=== PATIENT | female | born 1955 | race Caucasian/White ===

== ENCOUNTER 2021-03-10 15:44 | Inpatient (IN) ==
[2021-03-10 16:46] LABS: Basophils % 0.6 %; Eosinophils # 0.2 K/mcL (0.0-0.6); Eosinophils % 4.3 %; Hematocrit 44.2 % (35.3-44.9); Hemoglobin 13.7 g/dL (11.5-15.4); Immature Granulocytes % 0.4 % (0-4); Lymphocytes # 0.5 K/mcL (0.6-4.6); Lymphocytes % 9.4 %; Mean Corpuscular Hemoglobin 30.4 pg (28.0-33.3); Mean Corpuscular Volume 98.2 fL (83.0-100.0); Monocytes # 0.4 K/mcL (0.0-1.3); Monocytes % 8.6 %; Neutrophils # 3.9 K/mcL (1.6-8.9); Platelet Count 143 K/mcL (140-400); Red Cell Distribution Width 14.5 % (11.5-14.5); Segmented Neutrophils % 76.7 %; White Blood Count 5.1 K/mcL (4.3-11.1)
[2021-03-10 17:36] LABS: Prothrombin Time 11.4 Seconds (9.4-12.1)
[2021-03-10 17:39] LABS: Activated Partial Thrombo Time 34.8 Seconds (26.0-36.0); D-Dimer 299 ng/mLFEU (0-500)
[2021-03-10 17:48] LABS: BUN/Creatinine Ratio 23 (6-26); Blood Urea Nitrogen 10 mg/dL (8-23); Calcium 9.8 mg/dL (8.6-10.3); Carbon Dioxide 35 mEq/L (23-29); Chloride 95 mEq/L (98-107); Glucose 104 mg/dL (70-105); Osmolality,Calculated 277 (280-300); Potassium 4.3 mEq/L (3.5-5.1); Sodium 134 mEq/L (136-145); Troponin I 0.03 ng/mL (< 0.04); eGFR For African Americans > 60 (> 60); eGFR For Non-African Americans > 60 (> 60)
[2021-03-10] MEDS ORDERED: *HR* Heparin 5,000 UNIT/ML VIAL IVP PRN ×2 (17:58)
[2021-03-10] MEDS ORDERED: *HR* Heparin 5,000 UNIT/ML VIAL IVP ONE (17:58)
[2021-03-10] MEDS ORDERED: Heparin 25,000UNIT/250ML 1/2NS 25,000 UNIT/250 ML IV.SOLN IVC SCH (18:00)
[2021-03-10 18:08] LABS: Influenza A PCR Negative (Negative); Influenza B PCR Negative (Negative); Resp. Syncytial Virus PCR Negative (Negative)
[2021-03-10 18:08] LABS: Heparin anti-factor XA UFH < 0.04 IU/mL (0.30-0.70)
[2021-03-10 18:09] LABS: SARS-CoV-2 by PCR (In House) Negative (Negative)
[2021-03-10] MEDS: DilTIAZem 50 MG/50 ML IV.SOLN IVC SCH (18:35)
[2021-03-10] MEDS ORDERED: Melatonin 3 MG TABLET PO PRN (20:12)
[2021-03-10] MEDS ORDERED: Naloxone 0.4 MG/ML INJ IVP PRN (20:12)
[2021-03-10] MEDS ORDERED: Ondansetron 4 MG/2 ML VIAL IVP PRN (20:12)
[2021-03-10] MEDS ORDERED: Acetaminophen 325 MG TABLET PO PRN (20:12)
[2021-03-10] MEDS ORDERED: *HR* HYDROcodone/Acet 5/325 mg TABLET PO PRN (20:12)
[2021-03-10] MEDS ORDERED: ALPRAZolam 0.5 MG TABLET PO PRN (20:14)
[2021-03-10 21:07] LABS: Magnesium 1.5 mg/dL (1.6-2.6)
[2021-03-10] MEDS: Ipratropium 1 PUFF INHALER IH PRN (22:05)
[2021-03-10] MEDS: Levalbuterol 1 PUFF INHALER IH PRN (22:06)
[2021-03-10] MEDS ORDERED: *HR* LORazepam 2 MG/ML VIAL IVP PRN ×3 (22:36)
[2021-03-10] MEDS ORDERED: Furosemide 20 MG TABLET PO ONE (23:15)
[2021-03-11] MEDS: DilTIAZem 50 MG/50 ML IV.SOLN IVC SCH ×2 (00:40→04:05)
[2021-03-11 01:27] LABS: BUN/Creatinine Ratio 22 (6-26); Blood Urea Nitrogen 10 mg/dL (8-23); Calcium 9.3 mg/dL (8.6-10.3); Carbon Dioxide 37 mEq/L (23-29); Chloride 95 mEq/L (98-107); Chol/HDL Ratio 2.6 (0-4.9); Cholesterol 171 mg/dL (< 200); Glucose 219 mg/dL (70-105); HDL Cholesterol 66 mg/dL (40-59); LDL Cholesterol,Calculated 79 mg/dL (< 100); Magnesium 2.2 mg/dL (1.6-2.6); Osmolality,Calculated 286 (280-300); Potassium 3.9 mEq/L (3.5-5.1); Sodium 135 mEq/L (136-145); Triglycerides 128 mg/dL (< 150); eGFR For African Americans > 60 (> 60); eGFR For Non-African Americans > 60 (> 60)
[2021-03-11 02:15] LABS: Basophils % 0.8 %; Eosinophils % 5.2 %; Immature Granulocytes % 0.6 % (0-4); Mean Corpuscular Volume 99.8 fL (83.0-100.0); Prothrombin Time 11.1 Seconds (9.4-12.1); Segmented Neutrophils % 76.8 %
[2021-03-11 02:17] LABS: Eosinophils # 0.3 K/mcL (0.0-0.6); Hematocrit 43.2 % (35.3-44.9); Immature Platelets 7.9 % (1.1-6.1); Lymphocytes # 0.5 K/mcL (0.6-4.6); Lymphocytes % 9.5 %; Mean Corpuscular HGB Conc 30.1 g/dL (31.6-35.5); Mean Platelet Volume 11.2 fL (9.4-12.4); Monocytes # 0.4 K/mcL (0.0-1.3); Monocytes % 7.1 %; Platelet Count 135 K/mcL (140-400); Red Blood Count 4.33 M/mcL (3.82-4.97); Red Cell Distribution Width 14.4 % (11.5-14.5)
[2021-03-11] MEDS ORDERED: Dextrose Gel 15 GM/37.5 ML TUBE PO PRN ×2 (02:23)
[2021-03-11] MEDS ORDERED: D5% in Water 1,000 ML IVC PRN (02:23)
[2021-03-11] MEDS ORDERED: *HR* Dextrose 50 % in Water (Syg) 50 ML SYRINGE IVP PRN (02:23)
[2021-03-11 02:33] LABS: Neutrophils # 3.8 K/mcL (1.6-8.9)
[2021-03-11] MEDS: Levalbuterol 1 PUFF INHALER IH PRN (04:03)
[2021-03-11] MEDS: Ipratropium 1 PUFF INHALER IH PRN (04:03)
[2021-03-11] MEDS ORDERED: Ipratropium 1 PUFF INHALER IH PRN (04:12)
[2021-03-11 05:09] LABS: Thyroid Stimulating Hormone 0.616 mcIU/mL (0.340-5.600)
[2021-03-11] MEDS: Insulin LISPRO 300 UNITS/3 ML VIAL SUBQ SCH ×4 (06:00→20:02)
[2021-03-11] MEDS: Thiamine (B-1) 100 MG TABLET PO SCH (08:35)
[2021-03-11] MEDS: Vitamin B Complex/Vit C/Vit E 1 EACH TABLET PO SCH (08:36)
[2021-03-11] MEDS: Folic Acid 1 MG TABLET PO SCH (08:36)
[2021-03-11] MEDS: Levalbuterol Neb 1.25 MG/3 ML IH SCH ×3 (10:02→20:08)
[2021-03-11] MEDS: lisinopriL 5 MG TABLET PO SCH (10:46)
[2021-03-11] MEDS ORDERED: *HR* Metoprolol 5 MG/5 ML VIAL IVP PRN (11:33)
[2021-03-11] MEDS: Apixaban 5 MG TABLET PO SCH ×2 (11:52→20:03)
[2021-03-12] MEDS: Levalbuterol Neb 1.25 MG/3 ML IH SCH ×4 (02:39→19:56)
[2021-03-12 04:09] LABS: Hematocrit 41.8 % (35.3-44.9); Hemoglobin 13.1 g/dL (11.5-15.4); Immature Platelets 6.2 % (1.1-6.1); Mean Corpuscular HGB Conc 31.3 g/dL (31.6-35.5); Mean Corpuscular Hemoglobin 31.3 pg (28.0-33.3); Mean Platelet Volume 10.3 fL (9.4-12.4); Red Blood Count 4.18 M/mcL (3.82-4.97); Red Cell Distribution Width 14.6 % (11.5-14.5); White Blood Count 4.3 K/mcL (4.3-11.1)
[2021-03-12 04:23] LABS: INR 1.2; Prothrombin Time 13.3 Seconds (9.4-12.1)
[2021-03-12 04:26] LABS: Alanine Aminotransferase 23 Units/L (7-52); Albumin/Globulin Ratio 1.4 (1.1-2.2); Alkaline Phosphatase 381 Units/L (34-104); Aspartate Amino Transferase 17 Units/L (13-39); BUN/Creatinine Ratio 36 (6-26); Bilirubin,Total 0.8 mg/dL (0.3-1.0); Blood Urea Nitrogen 13 mg/dL (8-23); Calcium 9.5 mg/dL (8.6-10.3); Carbon Dioxide 40 mEq/L (23-29); Chloride 95 mEq/L (98-107); Globulin 2.8 g/dL (2.4-3.5); Glucose 164 mg/dL (70-105); Osmolality,Calculated 282 (280-300); Potassium 4.1 mEq/L (3.5-5.1); Sodium 134 mEq/L (136-145); Total Protein 6.8 g/dL (6.4-8.9); eGFR For African Americans > 60 (> 60); eGFR For Non-African Americans > 60 (> 60)
[2021-03-12] MEDS: Insulin LISPRO 300 UNITS/3 ML VIAL SUBQ SCH ×4 (07:02→21:32)
[2021-03-12] MEDS: Thiamine (B-1) 100 MG TABLET PO SCH (08:34)
[2021-03-12] MEDS: Folic Acid 1 MG TABLET PO SCH (08:34)
[2021-03-12] MEDS: lisinopriL 5 MG TABLET PO SCH (08:34)
[2021-03-12] MEDS: Vitamin B Complex/Vit C/Vit E 1 EACH TABLET PO SCH (08:34)
[2021-03-12] MEDS: Apixaban 5 MG TABLET PO SCH ×2 (08:34→21:32)
[2021-03-12] MEDS ORDERED: methylPREDNISolone 125 MG/2 ML VIAL IVP ONE (11:48)
[2021-03-12] MEDS ORDERED: Perflutren Lipid Microsphere 1.3 ML in 0.9 % Sodium Chloride 8.7 ML IVP PRN (11:51)
[2021-03-12] MEDS ORDERED: Ipratropium/Albuterol Neb 3 ML IH SCH (12:00)
[2021-03-12 13:45] LABS: ABG Base Excess 14 mEq/L (-2 to 3); ABG HCO3 49 mEq/L (21-27); ABG Oxygen Saturation 90 % (95-98); ABG PCO2 119 mmHg (35-45); ABG PH 7.22 pH Units (7.32-7.45); ABG PO2 77 mmHg (85-104); ABG TCO2 > 50 mEq/L (20-26)
[2021-03-12] MEDS ORDERED: Furosemide 40 MG/4 ML VIAL IVP STA (14:24)
[2021-03-12] MEDS: Ipratropium 1 PUFF INHALER IH SCH ×2 (15:42→19:57)
[2021-03-12] MEDS: MethylPREDNISolone 40 MG/ML VIAL IVP SCH (17:51)
[2021-03-12 18:30] LABS: ABG Base Excess 15 mEq/L (-2 to 3); ABG HCO3 49 mEq/L (21-27); ABG Oxygen Saturation 100 % (95-98); ABG PCO2 125 mmHg (35-45); ABG PO2 241 mmHg (85-104); ABG TCO2 > 50 mEq/L (20-26); Blood Gas VT 400 cc
[2021-03-12] MEDS ORDERED: *HR* LORazepam 2 MG/ML VIAL IVP PRN (18:33)
[2021-03-12] MEDS: Furosemide 20 MG/2 ML VIAL IVP SCH (21:31)
[2021-03-13] MEDS ORDERED: Artificial Tears SOLN 15 ML BOTTLE BOTH EYES PRN (01:12)
[2021-03-13] MEDS ORDERED: FentaNYL (PF) 1,000 MCG/100 ML IV.SOLN IVC SCH (01:15)
[2021-03-13] MEDS: Norepinephrine 4 MG/254 ML IV.SOLN IVC SCH ×3 (02:20→23:51)
[2021-03-13] MEDS: Levalbuterol Neb 1.25 MG/3 ML IH SCH ×4 (02:44→21:44)
[2021-03-13] MEDS: Ipratropium 1 PUFF INHALER IH SCH ×4 (02:45→21:44)
[2021-03-13] MEDS: MethylPREDNISolone 40 MG/ML VIAL IVP SCH ×3 (03:13→19:15)
[2021-03-13] MEDS: Artificial Tears SOLN 15 ML BOTTLE BOTH EYES SCH ×6 (03:13→23:51)
[2021-03-13 04:29] LABS: ABG Base Excess 10 mEq/L (-2 to 3); ABG HCO3 37 mEq/L (21-27); ABG Oxygen Saturation 100 % (95-98); ABG PCO2 55 mmHg (35-45); ABG PH 7.43 pH Units (7.32-7.45); ABG PO2 577 mmHg (85-104); ABG TCO2 39 mEq/L (20-26); Blood Gas VT 420 cc
[2021-03-13] MEDS: DilTIAZem 50 MG/50 ML IV.SOLN IVC SCH ×2 (04:44→08:49)
[2021-03-13] MEDS: lisinopriL 5 MG TABLET PO SCH (08:04)
[2021-03-13] MEDS: Apixaban 5 MG TABLET PO SCH ×2 (08:04→20:00)
[2021-03-13] MEDS: Insulin LISPRO 300 UNITS/3 ML VIAL SUBQ SCH ×4 (09:57→20:01)
[2021-03-13] MEDS ORDERED: Amiodarone Premix 360 MG/200 ML BAG IVC ONE (10:07)
[2021-03-13] MEDS ORDERED: Amiodarone Premix 150 MG/100 ML BAG IVPB ONE (10:07)
[2021-03-13] MEDS: Chlorhexidine Rinse 15 ML MOUTHWASH MM SCH ×2 (10:08→20:00)
[2021-03-13] MEDS: Furosemide 20 MG/2 ML VIAL IVP SCH (10:08)
[2021-03-13] MEDS: Pantoprazole 40 MG VIAL IVP SCH (10:09)
[2021-03-13] MEDS: Dexmedetomidine HCl 400 MCG/100 ML MLS IVC SCH ×2 (10:25→22:08)
[2021-03-13] MEDS: Folic Acid 1 MG in 0.9 % Sodium Chloride 50 ML IVPB SCH (10:37)
[2021-03-13] MEDS: Thiamine (B-1) 100 MG in 0.9 % Sodium Chloride 50 ML IVPB SCH (10:38)
[2021-03-13 10:39] LABS: Hematocrit 40.9 % (35.3-44.9); Hemoglobin 12.7 g/dL (11.5-15.4); Mean Corpuscular HGB Conc 31.1 g/dL (31.6-35.5); Mean Corpuscular Hemoglobin 30.5 pg (28.0-33.3); Mean Corpuscular Volume 98.1 fL (83.0-100.0); Mean Platelet Volume 11.1 fL (9.4-12.4); Platelet Count 152 K/mcL (140-400); Red Blood Count 4.17 M/mcL (3.82-4.97); Red Cell Distribution Width 14.2 % (11.5-14.5); White Blood Count 4.7 K/mcL (4.3-11.1)
[2021-03-13 10:42] LABS: VBG Ionized Calcium 1.01 mmol/L (1.15-1.35)
[2021-03-13 10:55] LABS: Alanine Aminotransferase 24 Units/L (7-52); Albumin 3.7 g/dL (3.5-5.7); Albumin/Globulin Ratio 1.3 (1.1-2.2); Alkaline Phosphatase 383 Units/L (34-104); Aspartate Amino Transferase 20 Units/L (13-39); BUN/Creatinine Ratio 62 (6-26); Bilirubin,Total 1.1 mg/dL (0.3-1.0); Blood Urea Nitrogen 42 mg/dL (8-23); Calcium 9.7 mg/dL (8.6-10.3); Carbon Dioxide 38 mEq/L (23-29); Chloride 90 mEq/L (98-107); Globulin 2.8 g/dL (2.4-3.5); Glucose 260 mg/dL (70-105); Magnesium 1.3 mg/dL (1.6-2.6); Osmolality,Calculated 303 (280-300); Phosphorous 2.1 mg/dL (2.7-4.5); Potassium 4.1 mEq/L (3.5-5.1); Sodium 137 mEq/L (136-145); Total Protein 6.5 g/dL (6.4-8.9); eGFR For African Americans > 60 (> 60); eGFR For Non-African Americans > 60 (> 60)
[2021-03-13] MEDS ORDERED: *HR* Etomidate 20 MG/10 ML AMPUL IVP ONE (11:39)
[2021-03-13] MEDS ORDERED: *HR* Midazolam HCl 2 MG/2 ML VIAL IVP ONE (11:39)
[2021-03-13] MEDS ORDERED: *HR* Rocuronium Bromide 50 MG/5 ML VIAL IVP ONE (11:39)
[2021-03-13] MEDS: FentaNYL (PF) 1,000 MCG/100 ML IV.SOLN IVC SCH (15:10)
[2021-03-13] MEDS: Amiodarone Premix 360 MG/200 ML BAG IVC SCH (16:50)
[2021-03-14] MEDS: Norepinephrine 4 MG/254 ML IV.SOLN IVC SCH ×4 (02:18→23:52)
[2021-03-14] MEDS: Ipratropium 1 PUFF INHALER IH SCH ×4 (03:28→22:42)
[2021-03-14] MEDS: Levalbuterol Neb 1.25 MG/3 ML IH SCH ×4 (03:29→22:40)
[2021-03-14] MEDS: Artificial Tears SOLN 15 ML BOTTLE BOTH EYES SCH ×6 (03:59→23:51)
[2021-03-14] MEDS: MethylPREDNISolone 40 MG/ML VIAL IVP SCH ×2 (04:00→11:03)
[2021-03-14 04:19] LABS: Red Cell Distribution Width 14.4 % (11.5-14.5)
[2021-03-14 04:20] LABS: Hematocrit 39.1 % (35.3-44.9); Hemoglobin 12.6 g/dL (11.5-15.4); Immature Platelets 6.7 % (1.1-6.1); Mean Corpuscular HGB Conc 32.2 g/dL (31.6-35.5); Mean Corpuscular Hemoglobin 30.1 pg (28.0-33.3); Mean Corpuscular Volume 93.3 fL (83.0-100.0); Red Blood Count 4.19 M/mcL (3.82-4.97); White Blood Count 5.2 K/mcL (4.3-11.1)
[2021-03-14 04:20] LABS: ABG Base Excess 13 mEq/L (-2 to 3); ABG HCO3 37 mEq/L (21-27); ABG Oxygen Saturation 96 % (95-98); ABG PCO2 45 mmHg (35-45); ABG PH 7.52 pH Units (7.32-7.45); ABG PO2 75 mmHg (85-104); ABG TCO2 39 mEq/L (20-26); Blood Gas Modality AF; Blood Gas VT 380 cc
[2021-03-14 04:37] LABS: VBG Ionized Calcium 1.12 mmol/L (1.15-1.35)
[2021-03-14 04:43] LABS: Alanine Aminotransferase 22 Units/L (7-52); Albumin 3.7 g/dL (3.5-5.7); Albumin/Globulin Ratio 1.3 (1.1-2.2); Alkaline Phosphatase 355 Units/L (34-104); Aspartate Amino Transferase 14 Units/L (13-39); BUN/Creatinine Ratio 70 (6-26); Bilirubin,Total 0.7 mg/dL (0.3-1.0); Blood Urea Nitrogen 55 mg/dL (8-23); Calcium 9.7 mg/dL (8.6-10.3); Carbon Dioxide 36 mEq/L (23-29); Chloride 89 mEq/L (98-107); Globulin 2.8 g/dL (2.4-3.5); Glucose 346 mg/dL (70-105); Magnesium 2.1 mg/dL (1.6-2.6); Osmolality,Calculated 301 (280-300); Potassium 4.3 mEq/L (3.5-5.1); Sodium 131 mEq/L (136-145); Total Protein 6.5 g/dL (6.4-8.9); eGFR For African Americans > 60 (> 60); eGFR For Non-African Americans > 60 (> 60)
[2021-03-14] MEDS: Amiodarone Premix 360 MG/200 ML BAG IVC SCH (04:55)
[2021-03-14] MEDS: Dexmedetomidine HCl 400 MCG/100 ML MLS IVC SCH ×3 (05:55→20:05)
[2021-03-14] MEDS: Insulin LISPRO 300 UNITS/3 ML VIAL SUBQ SCH ×5 (06:25→23:46)
[2021-03-14] MEDS: Apixaban 5 MG TABLET PO SCH ×2 (07:46→19:31)
[2021-03-14] MEDS: Pantoprazole 40 MG VIAL IVP SCH (07:46)
[2021-03-14] MEDS: Folic Acid 1 MG in 0.9 % Sodium Chloride 50 ML IVPB SCH (07:46)
[2021-03-14] MEDS: Chlorhexidine Rinse 15 ML MOUTHWASH MM SCH ×2 (07:46→19:44)
[2021-03-14] MEDS: Thiamine (B-1) 100 MG in 0.9 % Sodium Chloride 50 ML IVPB SCH (07:47)
[2021-03-14] MEDS: FentaNYL (PF) 1,000 MCG/100 ML IV.SOLN IVC SCH (11:04)
[2021-03-14] MEDS ORDERED: *HR* Heparin 5,000 UNIT/ML VIAL IVP PRN ×2 (20:52)
[2021-03-14] MEDS ORDERED: *HR* Heparin 5,000 UNIT/ML VIAL IVP ONE (20:52)
[2021-03-14] MEDS ORDERED: Heparin 25,000UNIT/250ML 1/2NS 25,000 UNIT/250 ML IV.SOLN IVC SCH ×2 (21:00)
[2021-03-14 22:03] LABS: INR 1.3; Prothrombin Time 14.3 Seconds (9.4-12.1)
[2021-03-14 22:06] LABS: Activated Partial Thrombo Time 31.7 Seconds (26.0-36.0)
[2021-03-15 01:50] LABS: Hematocrit 42.5 % (35.3-44.9); Hemoglobin 13.3 g/dL (11.5-15.4); Mean Corpuscular HGB Conc 31.3 g/dL (31.6-35.5); Mean Corpuscular Hemoglobin 30.3 pg (28.0-33.3); Mean Corpuscular Volume 96.8 fL (83.0-100.0); Mean Platelet Volume 11.3 fL (9.4-12.4); Platelet Count 115 K/mcL (140-400); Red Blood Count 4.39 M/mcL (3.82-4.97); Red Cell Distribution Width 14.3 % (11.5-14.5)
[2021-03-15] MEDS: Levalbuterol Neb 1.25 MG/3 ML IH SCH ×4 (03:52→23:43)
[2021-03-15] MEDS: Ipratropium 1 PUFF INHALER IH SCH ×4 (03:54→23:42)
[2021-03-15] MEDS: Dexmedetomidine HCl 400 MCG/100 ML MLS IVC SCH (04:00)
[2021-03-15] MEDS: Artificial Tears SOLN 15 ML BOTTLE BOTH EYES SCH (04:01)
[2021-03-15 04:30] LABS: Red Blood Count 4.42 M/mcL (3.82-4.97)
[2021-03-15 04:32] LABS: Hematocrit 42.7 % (35.3-44.9); Hemoglobin 13.3 g/dL (11.5-15.4); Immature Platelets 8.7 % (1.1-6.1); Mean Corpuscular HGB Conc 31.1 g/dL (31.6-35.5); Mean Corpuscular Hemoglobin 30.1 pg (28.0-33.3); Mean Corpuscular Volume 96.6 fL (83.0-100.0); Mean Platelet Volume 11.3 fL (9.4-12.4); Red Cell Distribution Width 14.2 % (11.5-14.5); White Blood Count 6.2 K/mcL (4.3-11.1)
[2021-03-15 04:53] LABS: Alanine Aminotransferase 20 Units/L (7-52); Albumin 3.8 g/dL (3.5-5.7); Albumin/Globulin Ratio 1.5 (1.1-2.2); Alkaline Phosphatase 313 Units/L (34-104); Aspartate Amino Transferase 19 Units/L (13-39); BUN/Creatinine Ratio 68 (6-26); Bilirubin,Total 0.8 mg/dL (0.3-1.0); Blood Urea Nitrogen 44 mg/dL (8-23); Calcium 9.4 mg/dL (8.6-10.3); Carbon Dioxide 43 mEq/L (23-29); Chloride 92 mEq/L (98-107); Globulin 2.5 g/dL (2.4-3.5); Glucose 145 mg/dL (70-105); Osmolality,Calculated 298 (280-300); Potassium 4.8 mEq/L (3.5-5.1); Sodium 137 mEq/L (136-145); Total Protein 6.3 g/dL (6.4-8.9); eGFR For African Americans > 60 (> 60); eGFR For Non-African Americans > 60 (> 60)
[2021-03-15] MEDS: Insulin LISPRO 300 UNITS/3 ML VIAL SUBQ SCH (05:57)
[2021-03-15] MEDS: Pantoprazole 40 MG VIAL IVP SCH (07:37)
[2021-03-15] MEDS: Folic Acid 1 MG in 0.9 % Sodium Chloride 50 ML IVPB SCH (07:38)
[2021-03-15] MEDS: Thiamine (B-1) 100 MG in 0.9 % Sodium Chloride 50 ML IVPB SCH (07:38)
[2021-03-15] MEDS ORDERED: MethylPREDNISolone 40 MG/ML VIAL IVP SCH (09:00)
[2021-03-15] MEDS ORDERED: Apixaban 5 MG TABLET PO SCH (18:00)
[2021-03-15] MEDS ORDERED: Ondansetron 4 MG/2 ML VIAL IVP PRN (18:35)
[2021-03-15] MEDS ORDERED: D5% in Water 1,000 ML IVC PRN (18:35)
[2021-03-15] MEDS ORDERED: ALPRAZolam 0.5 MG TABLET PO PRN (18:35)
[2021-03-15] MEDS ORDERED: Dextrose Gel 15 GM/37.5 ML TUBE PO PRN ×2 (18:35)
[2021-03-15] MEDS ORDERED: Naloxone 0.4 MG/ML INJ IVP PRN (18:35)
[2021-03-15] MEDS ORDERED: *HR* Dextrose 50 % in Water (Syg) 50 ML SYRINGE IVP PRN (18:35)
[2021-03-15] MEDS ORDERED: *HR* Metoprolol 5 MG/5 ML VIAL IVP PRN (18:35)
[2021-03-15] MEDS ORDERED: Acetaminophen 325 MG TABLET PO PRN (18:35)
[2021-03-15] MEDS ORDERED: *HR* LORazepam 2 MG/ML VIAL IVP PRN ×4 (18:35)
[2021-03-15] MEDS ORDERED: Melatonin 3 MG TABLET PO PRN (21:00)
[2021-03-16 03:49] LABS: Basophils % 0.1 %; Eosinophils # 0.1 K/mcL (0.0-0.6); Eosinophils % 1.7 %; Hematocrit 42.5 % (35.3-44.9); Hemoglobin 13.3 g/dL (11.5-15.4); Immature Granulocytes % 0.5 % (0-4); Immature Platelets 7.8 % (1.1-6.1); Lymphocytes # 0.8 K/mcL (0.6-4.6); Lymphocytes % 9.6 %; Mean Corpuscular HGB Conc 31.3 g/dL (31.6-35.5); Mean Corpuscular Hemoglobin 30.2 pg (28.0-33.3); Mean Corpuscular Volume 96.6 fL (83.0-100.0); Mean Platelet Volume 10.4 fL (9.4-12.4); Monocytes # 0.5 K/mcL (0.0-1.3); Neutrophils # 6.9 K/mcL (1.6-8.9); Platelet Count 142 K/mcL (140-400); Red Cell Distribution Width 14.3 % (11.5-14.5); Segmented Neutrophils % 82.1 %; White Blood Count 8.4 K/mcL (4.3-11.1)
[2021-03-16 03:55] LABS: VBG Ionized Calcium 1.26 mmol/L (1.15-1.35)
[2021-03-16] MEDS: Ipratropium 1 PUFF INHALER IH SCH ×4 (04:08→20:21)
[2021-03-16] MEDS: Levalbuterol Neb 1.25 MG/3 ML IH SCH ×2 (04:08→04:10)
[2021-03-16 04:10] LABS: Alanine Aminotransferase 18 Units/L (7-52); Albumin 3.5 g/dL (3.5-5.7); Albumin/Globulin Ratio 1.5 (1.1-2.2); Alkaline Phosphatase 261 Units/L (34-104); Aspartate Amino Transferase 16 Units/L (13-39); BUN/Creatinine Ratio 48 (6-26); Blood Urea Nitrogen 31 mg/dL (8-23); Calcium 8.9 mg/dL (8.6-10.3); Carbon Dioxide 39 mEq/L (23-29); Chloride 96 mEq/L (98-107); Globulin 2.4 g/dL (2.4-3.5); Glucose 112 mg/dL (70-105); Magnesium 1.7 mg/dL (1.6-2.6); Osmolality,Calculated 287 (280-300); Phosphorous 2.5 mg/dL (2.7-4.5); Sodium 135 mEq/L (136-145); Total Protein 5.9 g/dL (6.4-8.9); eGFR For African Americans > 60 (> 60); eGFR For Non-African Americans > 60 (> 60)
[2021-03-16] MEDS: Apixaban 5 MG TABLET PO SCH ×2 (05:43→17:19)
[2021-03-16] MEDS ORDERED: Thiamine (B-1) 100 MG in 0.9 % Sodium Chloride 50 ML IVPB SCH (09:00)
[2021-03-16] MEDS ORDERED: Folic Acid 1 MG in 0.9 % Sodium Chloride 50 ML IVPB SCH (09:00)
[2021-03-16] MEDS ORDERED: Pantoprazole 40 MG VIAL IVP SCH (09:00)
[2021-03-16] MEDS: MethylPREDNISolone 40 MG/ML VIAL IVP SCH (09:15)
[2021-03-16] MEDS: FentaNYL (PF) 1,000 MCG/100 ML IV.SOLN IVC SCH (11:17)
[2021-03-16] MEDS: Norepinephrine 4 MG/254 ML IV.SOLN IVC SCH (11:18)
[2021-03-16] MEDS: Levalbuterol 1 PUFF INHALER IH SCH ×3 (11:28→20:23)
[2021-03-16] MEDS ORDERED: *HR* LORazepam 2 MG/ML VIAL IVP ONE (21:07)
[2021-03-17] MEDS: Ipratropium 1 PUFF INHALER IH SCH ×4 (03:56→20:36)
[2021-03-17] MEDS: Levalbuterol 1 PUFF INHALER IH SCH ×4 (03:56→20:35)
[2021-03-17] MEDS: Apixaban 5 MG TABLET PO SCH ×2 (05:12→16:34)
[2021-03-17] MEDS: Thiamine (B-1) 100 MG TABLET PO SCH (08:27)
[2021-03-17] MEDS: Folic Acid 1 MG TABLET PO SCH (08:27)
[2021-03-17] MEDS: MethylPREDNISolone 40 MG/ML VIAL IVP SCH (08:27)
[2021-03-17] MEDS ORDERED: Cefdinir 300 MG CAPSULE PO SCH (13:00)
[2021-03-17] MEDS: Cefdinir 300 MG CAPSULE PO SCH (20:52)
[2021-03-18 04:03] LABS: Hemoglobin 12.9 g/dL (11.5-15.4)
[2021-03-18 04:05] LABS: Eosinophils # 0.3 K/mcL (0.0-0.6); Eosinophils % 3.5 %; Hematocrit 40.9 % (35.3-44.9); Immature Granulocytes % 0.3 % (0-4); Immature Platelets 8.7 % (1.1-6.1); Lymphocytes # 0.9 K/mcL (0.6-4.6); Lymphocytes % 12.3 %; Mean Corpuscular HGB Conc 31.5 g/dL (31.6-35.5); Mean Corpuscular Hemoglobin 30.2 pg (28.0-33.3); Mean Corpuscular Volume 95.8 fL (83.0-100.0); Mean Platelet Volume 10.5 fL (9.4-12.4); Monocytes # 0.5 K/mcL (0.0-1.3); Monocytes % 6.4 %; Neutrophils # 5.7 K/mcL (1.6-8.9); Platelet Count 133 K/mcL (140-400); Red Blood Count 4.27 M/mcL (3.82-4.97); Red Cell Distribution Width 14.1 % (11.5-14.5); Segmented Neutrophils % 77.5 %; White Blood Count 7.4 K/mcL (4.3-11.1)
[2021-03-18] MEDS: Ipratropium 1 PUFF INHALER IH SCH ×2 (04:23→07:35)
[2021-03-18] MEDS: Levalbuterol 1 PUFF INHALER IH SCH ×2 (04:23→07:35)
[2021-03-18 04:30] LABS: BUN/Creatinine Ratio 30 (6-26); Blood Urea Nitrogen 17 mg/dL (8-23); Calcium 8.5 mg/dL (8.6-10.3); Carbon Dioxide 41 mEq/L (23-29); Chloride 97 mEq/L (98-107); Glucose 234 mg/dL (70-105); Osmolality,Calculated 295 (280-300); Potassium 4.5 mEq/L (3.5-5.1); Sodium 138 mEq/L (136-145); eGFR For African Americans > 60 (> 60); eGFR For Non-African Americans > 60 (> 60)
[2021-03-18] MEDS: Apixaban 5 MG TABLET PO SCH (05:28)
[2021-03-18] MEDS: Cefdinir 300 MG CAPSULE PO SCH (08:41)
[2021-03-18] MEDS: Folic Acid 1 MG TABLET PO SCH (08:41)
[2021-03-18] MEDS: Thiamine (B-1) 100 MG TABLET PO SCH (08:41)
[2021-03-18] MEDS ORDERED: predniSONE 20 MG TABLET PO SCH (09:00)
[2021-03-18 11:23] VITALS: BP 142/91; PULSE 103; TEMP 98.3; O2SAT 95
== END 2021-03-18 13:19 | disposition home or self-care (01) | DRG 208 ==
LOC: 2ANU 15:44 → EMEROOARM 15:44 → SUATTDRO 18:47 → 2ANU 20:42 → SUATTDRO 03-12 17:39 → ICNU 03-13 02:41 → 2ANU 03-15 18:16
PROVIDERS: ADMIT Internal Medicine; ATTEND Internal Medicine

== ENCOUNTER 2021-03-27 22:04 | Inpatient (IN) ==
[2021-03-27] MEDS ORDERED: Ipratropium/Albuterol Neb 3 ML IH ONE (22:16)
[2021-03-27] MEDS ORDERED: methylPREDNISolone 125 MG/2 ML VIAL IVP ONE (22:16)
[2021-03-27] MEDS ORDERED: cefTRIAXone 1,000 MG in 0.9 % Sodium Chloride Mini Bag 100 ML IVPB ONE (22:26)
[2021-03-27] MEDS ORDERED: Azithromycin 500 MG in 0.9 % Sodium Chloride 250 ML IVPB ONE (22:26)
[2021-03-27 22:40] LABS: Eosinophils % 0.1 %; Mean Corpuscular Volume 100.2 fL (83.0-100.0)
[2021-03-27 22:42] LABS: Basophils % 0.2 %; Hematocrit 41.9 % (35.3-44.9); Hemoglobin 12.8 g/dL (11.5-15.4); Immature Granulocytes % 0.7 % (0-4); Immature Platelets 9.6 % (1.1-6.1); Lymphocytes # 0.3 K/mcL (0.6-4.6); Lymphocytes % 3.6 %; Mean Corpuscular HGB Conc 30.5 g/dL (31.6-35.5); Mean Corpuscular Hemoglobin 30.6 pg (28.0-33.3); Mean Platelet Volume 11.1 fL (9.4-12.4); Monocytes # 0.5 K/mcL (0.0-1.3); Monocytes % 5.1 %; Platelet Count 116 K/mcL (140-400); Red Blood Count 4.18 M/mcL (3.82-4.97); Red Cell Distribution Width 14.3 % (11.5-14.5); Segmented Neutrophils % 90.3 %; White Blood Count 9.4 K/mcL (4.3-11.1)
[2021-03-27] MEDS ORDERED: Furosemide 40 MG/4 ML VIAL IVP ONE (22:42)
[2021-03-27 22:44] LABS: Neutrophils # 8.5 K/mcL (1.6-8.9)
[2021-03-27 22:50] LABS: INR 1.1
[2021-03-27] MEDS: DilTIAZem 50 MG/50 ML IV.SOLN IVC SCH (22:58)
[2021-03-27 23:03] LABS: BUN/Creatinine Ratio 37 (6-26); Blood Urea Nitrogen 16 mg/dL (8-23); Calcium 9.6 mg/dL (8.6-10.3); Carbon Dioxide 44 mEq/L (23-29); Chloride 92 mEq/L (98-107); Glucose 233 mg/dL (70-105); Osmolality,Calculated 297 (280-300); Potassium 4.5 mEq/L (3.5-5.1); Sodium 139 mEq/L (136-145); Troponin I 0.05 ng/mL (< 0.04); eGFR For African Americans > 60 (> 60); eGFR For Non-African Americans > 60 (> 60)
[2021-03-27 23:16] LABS: Bilirubin,Urine Negative (Negative); Blood,Urine Negative (Negative); Clarity,Urine Clear (Clear); Color,Urine Yellow (Yellow); Glucose,Urine (UA) >=1000 mg/dL (Normal); Granular Casts,Urine Few per lpf (None Seen); Hyaline Casts,Urine Few per lpf (None Seen); Ketones,Urine Negative (Negative); Leukocyte Esterase,Urine Negative (Negative); Mucus,Urine Few per lpf (None-Few); Nitrite,Urine Negative (Negative); Protein,Urine 100 mg/dL (Neg-Trace); Specific Gravity,Urine 1.029 (1.010-1.025); Squamous Epithelial Cell,Urine Few per hpf (None-Few); Urobilinogen,Urine Normal (Normal); WBC,Urine 0-3 per hpf (0-3)
[2021-03-27 23:21] LABS: VBG HCO3 48 mEq/L (21-27); VBG PCO2 133 mmHg (41-51); VBG PH 7.16 pH Units (7.32-7.42); VBG PO2 92 mmHg (25-50)
[2021-03-27 23:56] LABS: Influenza A PCR Positive (Negative); Influenza B PCR Negative (Negative); Resp. Syncytial Virus PCR Negative (Negative); SARS-CoV-2 by PCR (In House) Negative (Negative)
[2021-03-28] MEDS ORDERED: 0.9 % Sodium Chloride 1,000 ML ONE (02:01)
[2021-03-28] MEDS ORDERED: 0.9 % Sodium Chloride 1,000 ML IVC ONE (02:01)
[2021-03-28] MEDS ORDERED: *HR* Succinylcholine 200 MG/10 ML VIAL IVP ONE ×2 (02:04→12:50)
[2021-03-28] MEDS ORDERED: *HR* Etomidate 20 MG/10 ML AMPUL IVP ONE ×2 (02:05→12:50)
[2021-03-28] MEDS: FentaNYL (PF) 1,000 MCG/100 ML IV.SOLN IVC SCH ×3 (03:06→20:28)
[2021-03-28] MEDS ORDERED: *HR* Promethazine 25 MG/ML VIAL IM PRN (03:06)
[2021-03-28] MEDS ORDERED: Naloxone 0.4 MG/ML INJ IVP PRN (03:06)
[2021-03-28] MEDS ORDERED: Ondansetron 4 MG/2 ML VIAL IVP PRN (03:06)
[2021-03-28] MEDS ORDERED: Ipratropium/Albuterol Neb 3 ML IH PRN (03:10)
[2021-03-28] MEDS ORDERED: Artificial Tears SOLN 15 ML BOTTLE BOTH EYES PRN (03:12)
[2021-03-28] MEDS ORDERED: Ringers Solution, Lactated 1,000 ML ONE (03:35)
[2021-03-28] MEDS: Ipratropium/Albuterol Neb 3 ML IH SCH ×6 (03:51→23:30)
[2021-03-28] MEDS ORDERED: Ringers Solution, Lactated 1,000 ML IVC ONE (03:53)
[2021-03-28 04:46] LABS: ABG Base Excess 9 mEq/L (-2 to 3); ABG HCO3 36 mEq/L (21-27); ABG Oxygen Saturation 92 % (95-98); ABG PCO2 65 mmHg (35-45); ABG PH 7.36 pH Units (7.32-7.45); ABG PO2 70 mmHg (85-104); ABG TCO2 38 mEq/L (20-26); Blood Gas VT 400 cc
[2021-03-28] MEDS: Artificial Tears SOLN 15 ML BOTTLE BOTH EYES SCH ×5 (04:46→20:27)
[2021-03-28] MEDS: MethylPREDNISolone 40 MG/ML VIAL IVP SCH ×2 (04:47→20:25)
[2021-03-28] MEDS: *HR* Metoprolol 5 MG/5 ML VIAL IVP SCH ×3 (04:48→17:36)
[2021-03-28 06:06] LABS: Albumin 3.3 g/dL (3.5-5.7); Albumin/Globulin Ratio 1.3 (1.1-2.2); Bilirubin,Direct 0.4 mg/dL (0.0-0.2); Bilirubin,Indirect 0.5 mg/dL (0.0-1.0); Bilirubin,Total 0.9 mg/dL (0.3-1.0); Globulin 2.5 g/dL (2.4-3.5); Total Protein 5.8 g/dL (6.4-8.9)
[2021-03-28] MEDS: Piperacillin/Tazobactam 3.375 GM in 0.9 % Sodium Chloride Mini Bag 100 ML IVPB SCH ×2 (07:12→16:33)
[2021-03-28] MEDS: Pantoprazole 40 MG VIAL IVP SCH (07:46)
[2021-03-28] MEDS: Chlorhexidine Rinse 15 ML MOUTHWASH MM SCH ×2 (07:46→20:26)
[2021-03-28] MEDS: Thiamine (B-1) 100 MG in 0.9 % Sodium Chloride 50 ML IVPB SCH (07:57)
[2021-03-28] MEDS: Apixaban 5 MG TABLET GTUBE SCH ×2 (08:59→20:26)
[2021-03-28 10:31] LABS: Mucus,Urine Few per lpf (None-Few)
[2021-03-28 10:52] LABS: Amorphous Sediment,Urine Few per hpf (None-Few); Bacteria,Urine Few per hpf (None-Few); Bilirubin,Urine Negative (Negative); Blood,Urine Moderate (Negative); Clarity,Urine Ex.Turbid (Clear); Color,Urine Orange (Yellow); Glucose,Urine (UA) 50 mg/dL (Normal); Ketones,Urine Trace mg/dL (Negative); Leukocyte Esterase,Urine Negative (Negative); Nitrite,Urine Negative (Negative); Protein,Urine 70 mg/dL (Neg-Trace); RBC,Urine 50-100 per hpf (0-3); Specific Gravity,Urine 1.028 (1.010-1.025); Squamous Epithelial Cell,Urine Few per hpf (None-Few); Urobilinogen,Urine Normal (Normal)
[2021-03-28] MEDS ORDERED: Dexmedetomidine HCl 400 MCG/100 ML MLS IVC SCH (11:45)
[2021-03-28] MEDS: Dexmedetomidine HCl 400 MCG/100 ML MLS IVC SCH ×2 (13:45→22:24)
[2021-03-28] MEDS ORDERED: *HR* Dextrose 50 % in Water (Syg) 50 ML SYRINGE IVP PRN (17:27)
[2021-03-28] MEDS ORDERED: D5% in Water 1,000 ML IVC PRN (17:27)
[2021-03-28] MEDS ORDERED: Dextrose Gel 15 GM/37.5 ML TUBE PO PRN ×2 (17:27)
[2021-03-28] MEDS: Insulin LISPRO 300 UNITS/3 ML VIAL SUBQ SCH (17:41)
[2021-03-28] MEDS: Azithromycin 500 MG in 0.9 % Sodium Chloride 250 ML IVPB SCH (20:27)
[2021-03-28] MEDS ORDERED: *HR* Midazolam HCl 5 MG/5 ML VIAL IVP ONE (22:45)
[2021-03-29 00:07] LABS: A.calcoaceticus-baumannii cplx Not Detected (Not Detect); Bacteroides fragilis by PCR Not Detected (Not Detect); CTX-M ESBL Gene Not Detected (Not Detect); Candida albicans by PCR Not Detected (Not Detect); Candida auris by PCR Not Detected (Not Detect); Candida glabrata by PCR Not Detected (Not Detect); Candida krusei by PCR Not Detected (Not Detect); Candida parapsilosis by PCR Not Detected (Not Detect); Candida tropicalis by PCR Not Detected (Not Detect); Crypto. neoformans/gattii PCR Not Detected (Not Detect); Enterobacter cloacae Cmplx PCR Not Detected (Not Detect); Enterobacterales by PCR Not Detected (Not Detect); Enterococcus faecalis by PCR Not Detected (Not Detect); Enterococcus faecium by PCR Not Detected (Not Detect); Escherichia coli by PCR Not Detected (Not Detect); IMP Carbapenem-Resist Gene Not Detected (Not Detect); Klebs. pneumoniae group by PCR Not Detected (Not Detect); Klebsiella aerogenes by PCR Not Detected (Not Detect); Klebsiella oxytoca by PCR Not Detected (Not Detect); NDM Carbapenem-Resist Gene Not Detected (Not Detect); OXA-48-like Carbap-Resist Gene Not Detected (Not Detect); Proteus by PCR Not Detected (Not Detect); Pseudomonas aeruginosa by PCR Not Detected (Not Detect); Salmonella species by PCR Not Detected (Not Detect); Serratia marcescens by PCR Not Detected (Not Detect); Staph epidermidis by PCR Not Detected (Not Detect); Staph lugdunensis by PCR Not Detected (Not Detect); Staphylococcus aureus by PCR Not Detected (Not Detect); Staphylococcus by PCR DETECTED (Not Detect); Stenotrophomonas maltophilia Not Detected (Not Detect); Streptococcus agalactiae(B)PCR Not Detected (Not Detect); Streptococcus by PCR Not Detected (Not Detect); Streptococcus pneumoniae PCR Not Detected (Not Detect); Streptococcus pyogenes (A) PCR Not Detected (Not Detect); VIM Carbapenem-Resist Gene Not Detected (Not Detect); blaKPC Carbapenem-Resist Gene Not Detected (Not Detect); mcr-1 Colistin-Resist Gene Not Detected (Not Detect); mecA/C & MREJ (MRSA) Gene Not Detected (Not Detect); mecA/C Methicillin-Resist Gene Not Detected (Not Detect); vanA/B Vancomycin-Resist Genes Not Detected (Not Detect)
[2021-03-29] MEDS: *HR* Metoprolol 5 MG/5 ML VIAL IVP SCH ×2 (00:27→05:30)
[2021-03-29] MEDS: Dexmedetomidine HCl 400 MCG/100 ML MLS IVC SCH ×4 (00:28→22:05)
[2021-03-29] MEDS: Artificial Tears SOLN 15 ML BOTTLE BOTH EYES SCH ×7 (00:29→23:41)
[2021-03-29] MEDS: Piperacillin/Tazobactam 3.375 GM in 0.9 % Sodium Chloride Mini Bag 100 ML IVPB SCH ×4 (00:29→23:41)
[2021-03-29] MEDS: Insulin LISPRO 300 UNITS/3 ML VIAL SUBQ SCH ×5 (00:30→23:57)
[2021-03-29] MEDS: DilTIAZem 50 MG/50 ML IV.SOLN IVC SCH ×2 (04:09→21:15)
[2021-03-29] MEDS: Ipratropium/Albuterol Neb 3 ML IH SCH ×5 (04:17→19:38)
[2021-03-29 04:57] LABS: ABG Base Excess 11 mEq/L (-2 to 3); ABG HCO3 37 mEq/L (21-27); ABG Oxygen Saturation 92 % (95-98); ABG PCO2 50 mmHg (35-45); ABG PH 7.47 pH Units (7.32-7.45); ABG PO2 61 mmHg (85-104); ABG TCO2 38 mEq/L (20-26); Blood Gas Modality ASSIST CONTROL; Blood Gas VT 400 cc
[2021-03-29] MEDS: FentaNYL (PF) 1,000 MCG/100 ML IV.SOLN IVC SCH ×2 (05:06→12:18)
[2021-03-29] MEDS: MethylPREDNISolone 40 MG/ML VIAL IVP SCH ×3 (05:30→21:15)
[2021-03-29 06:10] LABS: VBG Ionized Calcium 0.99 mmol/L (1.15-1.35)
[2021-03-29 06:10] LABS: Immature Granulocytes % 0.6 % (0-4); Red Cell Distribution Width 13.6 % (11.5-14.5)
[2021-03-29 06:12] LABS: Hematocrit 36.9 % (35.3-44.9); Hemoglobin 11.5 g/dL (11.5-15.4); Immature Platelets 5.7 % (1.1-6.1); Lymphocytes # 0.2 K/mcL (0.6-4.6); Mean Corpuscular HGB Conc 31.2 g/dL (31.6-35.5); Mean Corpuscular Hemoglobin 29.9 pg (28.0-33.3); Mean Corpuscular Volume 96.1 fL (83.0-100.0); Mean Platelet Volume 11.2 fL (9.4-12.4); Monocytes # 0.2 K/mcL (0.0-1.3); Monocytes % 4.4 %; Neutrophils # 3.1 K/mcL (1.6-8.9); Red Blood Count 3.84 M/mcL (3.82-4.97); White Blood Count 3.4 K/mcL (4.3-11.1)
[2021-03-29 06:16] LABS: Platelet Count 87 K/mcL (140-400)
[2021-03-29 06:36] LABS: BUN/Creatinine Ratio 43 (6-26); Blood Urea Nitrogen 33 mg/dL (8-23); Calcium 9.1 mg/dL (8.6-10.3); Carbon Dioxide 32 mEq/L (23-29); Chloride 98 mEq/L (98-107); Glucose 270 mg/dL (70-105); Osmolality,Calculated 303 (280-300); Sodium 138 mEq/L (136-145); eGFR For African Americans > 60 (> 60); eGFR For Non-African Americans > 60 (> 60)
[2021-03-29 06:37] LABS: Albumin 3.3 g/dL (3.5-5.7); Albumin/Globulin Ratio 1.2 (1.1-2.2); Bilirubin,Direct 0.2 mg/dL (0.0-0.2); Bilirubin,Indirect 0.4 mg/dL (0.0-1.0); Bilirubin,Total 0.6 mg/dL (0.3-1.0); Globulin 2.7 g/dL (2.4-3.5); Magnesium 1.5 mg/dL (1.6-2.6); Phosphorous 2.8 mg/dL (2.7-4.5)
[2021-03-29] MEDS ORDERED: Furosemide 40 MG/4 ML VIAL IVP ONE ×2 (07:41→19:50)
[2021-03-29] MEDS ORDERED: Calcium Gluconate 1gm/50mL 1 GM/50 ML BAG IVPB SCH (08:00)
[2021-03-29] MEDS ORDERED: *HR* Metoprolol 5 MG/5 ML VIAL IVP ONE (08:27)
[2021-03-29] MEDS: Apixaban 5 MG TABLET GTUBE SCH ×2 (08:36→19:44)
[2021-03-29] MEDS: Chlorhexidine Rinse 15 ML MOUTHWASH MM SCH ×2 (08:36→19:53)
[2021-03-29] MEDS: Pantoprazole 40 MG VIAL IVP SCH (08:37)
[2021-03-29] MEDS ORDERED: *HR* Midazolam HCl 5 MG/5 ML VIAL IVP ONE ×2 (12:03→12:45)
[2021-03-29] MEDS ORDERED: *HR* Metoprolol 5 MG/5 ML VIAL IVP PRN ×2 (12:06→20:06)
[2021-03-29] MEDS: Thiamine (B-1) 100 MG in 0.9 % Sodium Chloride 50 ML IVPB SCH (18:08)
[2021-03-29] MEDS: Azithromycin 500 MG in 0.9 % Sodium Chloride 250 ML IVPB SCH (19:53)
[2021-03-29] MEDS ORDERED: Levalbuterol Neb 1.25 MG/3 ML ONE (19:55)
[2021-03-29] MEDS: Levalbuterol Neb 1.25 MG/3 ML IH SCH ×2 (19:58→19:59)
[2021-03-29 19:59] LABS: Appearance of Body Fluid Cloudy (Clear); Volume of Body Fluid 15 mL
[2021-03-29 20:01] LABS: Appearance of Body Fluid Cloudy (Clear); Volume of Body Fluid 20 mL
[2021-03-30] MEDS: *HR* LORazepam 2 MG/ML VIAL IVP PRN ×2 (01:57→17:19)
[2021-03-30] MEDS: Artificial Tears SOLN 15 ML BOTTLE BOTH EYES SCH ×6 (03:08→23:34)
[2021-03-30] MEDS: Levalbuterol Neb 1.25 MG/3 ML IH SCH ×4 (03:47→19:39)
[2021-03-30 04:45] LABS: VBG Ionized Calcium 1.08 mmol/L (1.15-1.35)
[2021-03-30 04:47] LABS: Hemoglobin 12.2 g/dL (11.5-15.4); Mean Corpuscular Hemoglobin 30.7 pg (28.0-33.3); Red Blood Count 3.97 M/mcL (3.82-4.97)
[2021-03-30 04:49] LABS: Hematocrit 39.3 % (35.3-44.9); Immature Granulocytes % 0.3 % (0-4); Immature Platelets 7.4 % (1.1-6.1); Lymphocytes # 0.1 K/mcL (0.6-4.6); Lymphocytes % 1.4 %; Mean Platelet Volume 11.1 fL (9.4-12.4); Monocytes # 0.2 K/mcL (0.0-1.3); Neutrophils # 7.1 K/mcL (1.6-8.9); Platelet Count 121 K/mcL (140-400); Red Cell Distribution Width 13.4 % (11.5-14.5); Segmented Neutrophils % 96.3 %; White Blood Count 7.4 K/mcL (4.3-11.1)
[2021-03-30 05:04] LABS: Albumin 3.1 g/dL (3.5-5.7); Albumin/Globulin Ratio 1.1 (1.1-2.2); Bilirubin,Direct 0.1 mg/dL (0.0-0.2); Bilirubin,Indirect 0.4 mg/dL (0.0-1.0); Bilirubin,Total 0.5 mg/dL (0.3-1.0); Globulin 2.8 g/dL (2.4-3.5); Phosphorous 6.6 mg/dL (2.7-4.5); Total Protein 5.9 g/dL (6.4-8.9)
[2021-03-30 05:05] LABS: BUN/Creatinine Ratio 54 (6-26); Blood Urea Nitrogen 45 mg/dL (8-23); Calcium 8.7 mg/dL (8.6-10.3); Carbon Dioxide 38 mEq/L (23-29); Chloride 97 mEq/L (98-107); Glucose 140 mg/dL (70-105); Osmolality,Calculated 308 (280-300); Potassium 4.2 mEq/L (3.5-5.1); Sodium 142 mEq/L (136-145); eGFR For African Americans > 60 (> 60); eGFR For Non-African Americans > 60 (> 60)
[2021-03-30] MEDS: Insulin LISPRO 300 UNITS/3 ML VIAL SUBQ SCH ×4 (05:11→23:34)
[2021-03-30] MEDS: MethylPREDNISolone 40 MG/ML VIAL IVP SCH (05:14)
[2021-03-30] MEDS: Piperacillin/Tazobactam 3.375 GM in 0.9 % Sodium Chloride Mini Bag 100 ML IVPB SCH ×3 (08:27→23:37)
[2021-03-30] MEDS: Pantoprazole 40 MG VIAL IVP SCH (08:32)
[2021-03-30] MEDS: Apixaban 5 MG TABLET GTUBE SCH ×2 (09:04→19:24)
[2021-03-30] MEDS: Thiamine (B-1) 100 MG in 0.9 % Sodium Chloride 50 ML IVPB SCH (09:08)
[2021-03-30] MEDS: Chlorhexidine Rinse 15 ML MOUTHWASH MM SCH ×2 (09:13→19:23)
[2021-03-30] MEDS: DilTIAZem 50 MG/50 ML IV.SOLN IVC SCH ×3 (11:05→22:10)
[2021-03-30] MEDS ORDERED: Furosemide 40 MG/4 ML VIAL IVP ONE (16:39)
[2021-03-30] MEDS: *HR* Metoprolol 5 MG/5 ML VIAL IVP PRN (17:14)
[2021-03-30] MEDS: Dexmedetomidine HCl 400 MCG/100 ML MLS IVC SCH (17:28)
[2021-03-30] MEDS: Oseltamivir 6 MG/ML UDC PO SCH (19:23)
[2021-03-31] MEDS: *HR* LORazepam 2 MG/ML VIAL IVP PRN ×4 (00:02→20:39)
[2021-03-31] MEDS: *HR* Metoprolol 5 MG/5 ML VIAL IVP PRN ×3 (02:42→15:07)
[2021-03-31] MEDS: Artificial Tears SOLN 15 ML BOTTLE BOTH EYES SCH ×2 (02:42→08:00)
[2021-03-31 03:34] LABS: VBG Ionized Calcium 1.13 mmol/L (1.15-1.35)
[2021-03-31 03:38] LABS: Basophils % 0.1 %; Eosinophils % 0.1 %; Hematocrit 38.4 % (35.3-44.9); Hemoglobin 11.7 g/dL (11.5-15.4); Immature Granulocytes % 0.4 % (0-4); Lymphocytes # 0.4 K/mcL (0.6-4.6); Lymphocytes % 4.6 %; Mean Corpuscular HGB Conc 30.5 g/dL (31.6-35.5); Mean Corpuscular Hemoglobin 30.1 pg (28.0-33.3); Mean Corpuscular Volume 98.7 fL (83.0-100.0); Mean Platelet Volume 10.3 fL (9.4-12.4); Monocytes # 0.4 K/mcL (0.0-1.3); Monocytes % 5.4 %; Neutrophils # 6.8 K/mcL (1.6-8.9); Platelet Count 121 K/mcL (140-400); Red Blood Count 3.89 M/mcL (3.82-4.97); Red Cell Distribution Width 13.7 % (11.5-14.5); Segmented Neutrophils % 89.4 %; White Blood Count 7.6 K/mcL (4.3-11.1)
[2021-03-31] MEDS: Levalbuterol Neb 1.25 MG/3 ML IH SCH ×4 (03:42→19:43)
[2021-03-31 04:53] LABS: Albumin 3.1 g/dL (3.5-5.7); Albumin/Globulin Ratio 1.1 (1.1-2.2); Bilirubin,Direct 0.2 mg/dL (0.0-0.2); Bilirubin,Indirect 0.6 mg/dL (0.0-1.0); Bilirubin,Total 0.8 mg/dL (0.3-1.0); Globulin 2.7 g/dL (2.4-3.5); Magnesium 1.7 mg/dL (1.6-2.6); Phosphorous 2.7 mg/dL (2.7-4.5); Total Protein 5.8 g/dL (6.4-8.9)
[2021-03-31 04:55] LABS: BUN/Creatinine Ratio 53 (6-26); Blood Urea Nitrogen 39 mg/dL (8-23); Calcium 8.7 mg/dL (8.6-10.3); Carbon Dioxide 45 mEq/L (23-29); Chloride 97 mEq/L (98-107); Glucose 129 mg/dL (70-105); Osmolality,Calculated 311 (280-300); Sodium 145 mEq/L (136-145); eGFR For African Americans > 60 (> 60); eGFR For Non-African Americans > 60 (> 60)
[2021-03-31] MEDS: Insulin LISPRO 300 UNITS/3 ML VIAL SUBQ SCH ×4 (05:11→23:28)
[2021-03-31] MEDS: Pantoprazole 40 MG VIAL IVP SCH (07:55)
[2021-03-31] MEDS: MethylPREDNISolone 40 MG/ML VIAL IVP SCH (07:57)
[2021-03-31] MEDS: Thiamine (B-1) 100 MG in 0.9 % Sodium Chloride 50 ML IVPB SCH (07:58)
[2021-03-31] MEDS: Chlorhexidine Rinse 15 ML MOUTHWASH MM SCH (07:58)
[2021-03-31] MEDS: Piperacillin/Tazobactam 3.375 GM in 0.9 % Sodium Chloride Mini Bag 100 ML IVPB SCH ×2 (07:59→15:07)
[2021-03-31] MEDS: Apixaban 5 MG TABLET GTUBE SCH ×2 (08:28→20:38)
[2021-03-31] MEDS: Dexmedetomidine HCl 400 MCG/100 ML MLS IVC SCH (10:36)
[2021-03-31] MEDS: DilTIAZem 50 MG/50 ML IV.SOLN IVC SCH ×2 (11:17→22:26)
[2021-03-31] MEDS: Oseltamivir 6 MG/ML UDC PO SCH ×2 (11:18→20:38)
[2021-04-01] MEDS: levoFLOXacin 750 MG/150 ML 750 MG/150 ML BAG IVPB SCH ×2 (01:25→22:00)
[2021-04-01 01:52] LABS: ABG Base Excess 17 mEq/L (-2 to 3); ABG HCO3 49 mEq/L (21-27); ABG Oxygen Saturation 93 % (95-98); ABG PCO2 114 mmHg (35-45); ABG PH 7.25 pH Units (7.32-7.45); ABG PO2 85 mmHg (85-104); ABG TCO2 > 50 mEq/L (20-26)
[2021-04-01] MEDS: Dexmedetomidine HCl 400 MCG/100 ML MLS IVC SCH ×2 (02:08→12:20)
[2021-04-01] MEDS: *HR* LORazepam 2 MG/ML VIAL IVP PRN ×5 (03:04→17:14)
[2021-04-01] MEDS: Levalbuterol Neb 1.25 MG/3 ML IH SCH ×4 (03:44→19:33)
[2021-04-01 03:46] LABS: Eosinophils % 0.2 %; Hemoglobin 11.4 g/dL (11.5-15.4); Immature Granulocytes % 0.7 % (0-4); Lymphocytes # 0.2 K/mcL (0.6-4.6); Lymphocytes % 4.8 %; Mean Corpuscular Volume 103.3 fL (83.0-100.0); Mean Platelet Volume 10.2 fL (9.4-12.4); Monocytes # 0.3 K/mcL (0.0-1.3); Monocytes % 5.9 %; Platelet Count 106 K/mcL (140-400); Red Blood Count 3.68 M/mcL (3.82-4.97); Red Cell Distribution Width 13.5 % (11.5-14.5); Segmented Neutrophils % 88.4 %; White Blood Count 4.6 K/mcL (4.3-11.1)
[2021-04-01 03:56] LABS: VBG Ionized Calcium 1.21 mmol/L (1.15-1.35)
[2021-04-01 04:07] LABS: Albumin 3.1 g/dL (3.5-5.7); Albumin/Globulin Ratio 1.3 (1.1-2.2); Bilirubin,Direct 0.1 mg/dL (0.0-0.2); Bilirubin,Indirect 0.6 mg/dL (0.0-1.0); Bilirubin,Total 0.7 mg/dL (0.3-1.0); Globulin 2.4 g/dL (2.4-3.5); Magnesium 1.8 mg/dL (1.6-2.6); Total Protein 5.5 g/dL (6.4-8.9)
[2021-04-01 04:11] LABS: BUN/Creatinine Ratio 74 (6-26); Blood Urea Nitrogen 46 mg/dL (8-23); Calcium 8.7 mg/dL (8.6-10.3); Carbon Dioxide 42 mEq/L (23-29); Chloride 101 mEq/L (98-107); Glucose 147 mg/dL (70-105); Osmolality,Calculated 321 (280-300); Sodium 148 mEq/L (136-145); eGFR For African Americans > 60 (> 60); eGFR For Non-African Americans > 60 (> 60)
[2021-04-01 05:52] LABS: ABG Base Excess 15 mEq/L (-2 to 3); ABG HCO3 45 mEq/L (21-27); ABG Oxygen Saturation 92 % (95-98); ABG PCO2 83 mmHg (35-45); ABG PH 7.34 pH Units (7.32-7.45); ABG PO2 71 mmHg (85-104); ABG TCO2 47 mEq/L (20-26); Blood Gas Modality AVAPS; Blood Gas VT 450 cc
[2021-04-01] MEDS: DilTIAZem 50 MG/50 ML IV.SOLN IVC SCH ×2 (06:17→13:20)
[2021-04-01] MEDS: Apixaban 5 MG TABLET GTUBE SCH ×2 (07:50→21:12)
[2021-04-01] MEDS: MethylPREDNISolone 40 MG/ML VIAL IVP SCH (07:51)
[2021-04-01] MEDS: Pantoprazole 40 MG VIAL IVP SCH (07:51)
[2021-04-01] MEDS: Insulin LISPRO 300 UNITS/3 ML VIAL SUBQ SCH ×4 (07:52→22:51)
[2021-04-01] MEDS: Oseltamivir 6 MG/ML UDC PO SCH (11:04)
[2021-04-01 11:41] LABS: Triglycerides 165 mg/dL (< 150)
[2021-04-01] MEDS ORDERED: D10% in Water 500 ML IVC PRN (11:58)
[2021-04-01] MEDS ORDERED: Fat Emulsion 250 ML IVPB SCH (17:00)
[2021-04-01] MEDS ORDERED: Clinimix E 5%-15% SOLUTION 2,000 ML with MVI, adult with vitamin K 10 ML IVC SCH (17:00)
[2021-04-02] MEDS: Oseltamivir 6 MG/ML UDC PO SCH ×2 (00:04→09:42)
[2021-04-02] MEDS: Insulin LISPRO 300 UNITS/3 ML VIAL SUBQ SCH ×6 (00:10→21:34)
[2021-04-02] MEDS: *HR* LORazepam 2 MG/ML VIAL IVP PRN (01:56)
[2021-04-02] MEDS: Levalbuterol Neb 1.25 MG/3 ML IH SCH ×4 (03:39→20:07)
[2021-04-02 05:05] LABS: VBG Ionized Calcium 1.22 mmol/L (1.15-1.35)
[2021-04-02] MEDS: Dexmedetomidine HCl 400 MCG/100 ML MLS IVC SCH (05:05)
[2021-04-02 05:08] LABS: Hemoglobin 10.9 g/dL (11.5-15.4); Immature Granulocytes % 0.4 % (0-4)
[2021-04-02 05:10] LABS: Hematocrit 34.6 % (35.3-44.9); Immature Platelets 5.3 % (1.1-6.1); Lymphocytes # 0.1 K/mcL (0.6-4.6); Lymphocytes % 4.9 %; Mean Corpuscular HGB Conc 31.5 g/dL (31.6-35.5); Mean Corpuscular Hemoglobin 32.4 pg (28.0-33.3); Monocytes # 0.2 K/mcL (0.0-1.3); Monocytes % 7.2 %; Neutrophils # 2.3 K/mcL (1.6-8.9); Red Blood Count 3.36 M/mcL (3.82-4.97); Red Cell Distribution Width 12.7 % (11.5-14.5); Segmented Neutrophils % 87.5 %; White Blood Count 2.6 K/mcL (4.3-11.1)
[2021-04-02 05:24] LABS: Platelet Count 91 K/mcL (140-400)
[2021-04-02 06:27] LABS: VBG Ionized Calcium 1.16 mmol/L (1.15-1.35)
[2021-04-02 06:40] LABS: Platelet Estimate Slight Decrease (Normal)
[2021-04-02 06:44] LABS: Alanine Aminotransferase 14 Units/L (7-52); Albumin 3.1 g/dL (3.5-5.7); Albumin/Globulin Ratio 1.6 (1.1-2.2); Alkaline Phosphatase 201 Units/L (34-104); Aspartate Amino Transferase 8 Units/L (13-39); BUN/Creatinine Ratio 85 (6-26); Bilirubin,Direct 0.1 mg/dL (0.0-0.2); Bilirubin,Indirect 0.5 mg/dL (0.0-1.0); Bilirubin,Total 0.6 mg/dL (0.3-1.0); Blood Urea Nitrogen 47 mg/dL (8-23); Carbon Dioxide 42 mEq/L (23-29); Chloride 101 mEq/L (98-107); Glucose 284 mg/dL (70-105); Magnesium 1.7 mg/dL (1.6-2.6); Osmolality,Calculated 319 (280-300); Phosphorous 1.3 mg/dL (2.7-4.5); Potassium 3.8 mEq/L (3.5-5.1); Sodium 143 mEq/L (136-145); Total Protein 5.1 g/dL (6.4-8.9); eGFR For African Americans > 60 (> 60); eGFR For Non-African Americans > 60 (> 60)
[2021-04-02] MEDS: Apixaban 5 MG TABLET GTUBE SCH (09:23)
[2021-04-02] MEDS: MethylPREDNISolone 40 MG/ML VIAL IVP SCH (09:24)
[2021-04-02] MEDS: Pantoprazole 40 MG VIAL IVP SCH (09:25)
[2021-04-02] MEDS ORDERED: Potassium Phosphate 44 MEQ in 0.9 % Sodium Chloride 250 ML IVPB ONE (10:39)
[2021-04-02] MEDS: FentaNYL (PF) 1,000 MCG/100 ML IV.SOLN IVC SCH (11:25)
[2021-04-02] MEDS: DilTIAZem 50 MG/50 ML IV.SOLN IVC SCH (12:16)
[2021-04-02] MEDS ORDERED: predniSONE 20 MG TABLET PO SCH (12:45)
[2021-04-02] MEDS ORDERED: Ipratropium/Albuterol Neb 3 ML IH PRN (15:32)
[2021-04-02] MEDS ORDERED: D5% in Water 1,000 ML IVC PRN (15:32)
[2021-04-02] MEDS ORDERED: *HR* LORazepam 2 MG/ML VIAL IVP PRN ×3 (15:32)
[2021-04-02] MEDS ORDERED: Naloxone 0.4 MG/ML INJ IVP PRN (15:32)
[2021-04-02] MEDS ORDERED: D10% in Water 500 ML IVC PRN (15:32)
[2021-04-02] MEDS ORDERED: Dextrose Gel 15 GM/37.5 ML TUBE PO PRN ×2 (15:32)
[2021-04-02] MEDS ORDERED: Clinimix E 5%-15% SOLUTION 2,000 ML with MVI, adult with vitamin K 10 ML IVC SCH ×3 (15:32→17:00)
[2021-04-02] MEDS ORDERED: Dexmedetomidine HCl 400 MCG/100 ML MLS IVC SCH (15:32)
[2021-04-02] MEDS ORDERED: *HR* Promethazine 25 MG/ML VIAL IM PRN (15:32)
[2021-04-02] MEDS ORDERED: *HR* Metoprolol 5 MG/5 ML VIAL IVP PRN (15:32)
[2021-04-02] MEDS ORDERED: *HR* Dextrose 50 % in Water (Syg) 50 ML SYRINGE IVP PRN (15:32)
[2021-04-02] MEDS ORDERED: DilTIAZem 50 MG/50 ML IV.SOLN IVC SCH (15:45)
[2021-04-02] MEDS ORDERED: Apixaban 5 MG TABLET GTUBE SCH (21:00)
[2021-04-03] MEDS ORDERED: Naloxone 0.4 MG/ML INJ IVP PRN (00:20)
[2021-04-03] MEDS ORDERED: *HR* Dextrose 50 % in Water (Syg) 50 ML SYRINGE IVP PRN (00:20)
[2021-04-03] MEDS ORDERED: Dextrose Gel 15 GM/37.5 ML TUBE PO PRN ×2 (00:20)
[2021-04-03] MEDS ORDERED: Ipratropium/Albuterol Neb 3 ML IH PRN (00:20)
[2021-04-03] MEDS ORDERED: *HR* Promethazine 25 MG/ML VIAL IM PRN (00:20)
[2021-04-03] MEDS ORDERED: *HR* LORazepam 2 MG/ML VIAL IVP PRN ×3 (00:20)
[2021-04-03] MEDS ORDERED: D10% in Water 500 ML IVC PRN (00:20)
[2021-04-03] MEDS ORDERED: D5% in Water 1,000 ML IVC PRN (00:20)
[2021-04-03] MEDS ORDERED: Clinimix E 5%-15% SOLUTION 2,000 ML with MVI, adult with vitamin K 10 ML IVC SCH ×4 (00:20→17:00)
[2021-04-03] MEDS ORDERED: DilTIAZem 50 MG/50 ML IV.SOLN IVC SCH (00:20)
[2021-04-03] MEDS ORDERED: levoFLOXacin 750 MG/150 ML 750 MG/150 ML BAG IVPB SCH (00:30)
[2021-04-03] MEDS: levoFLOXacin 750 MG/150 ML 750 MG/150 ML BAG IVPB SCH (00:48)
[2021-04-03 03:05] LABS: VBG Ionized Calcium 1.25 mmol/L (1.15-1.35)
[2021-04-03] MEDS: Levalbuterol Neb 1.25 MG/3 ML IH SCH ×4 (03:49→20:18)
[2021-04-03] MEDS: Insulin LISPRO 300 UNITS/3 ML VIAL SUBQ SCH ×5 (04:53→20:27)
[2021-04-03 05:03] LABS: Magnesium 1.6 mg/dL (1.6-2.6); Phosphorous 2.2 mg/dL (2.7-4.5)
[2021-04-03 05:05] LABS: VBG Ionized Calcium 1.23 mmol/L (1.15-1.35)
[2021-04-03 05:06] LABS: Alanine Aminotransferase 16 Units/L (7-52); Albumin 3.3 g/dL (3.5-5.7); Albumin/Globulin Ratio 1.4 (1.1-2.2); Alkaline Phosphatase 197 Units/L (34-104); Aspartate Amino Transferase 10 Units/L (13-39); BUN/Creatinine Ratio 70 (6-26); Bilirubin,Direct 0.2 mg/dL (0.0-0.2); Bilirubin,Indirect 0.7 mg/dL (0.0-1.0); Bilirubin,Total 0.9 mg/dL (0.3-1.0); Blood Urea Nitrogen 32 mg/dL (8-23); Calcium 8.7 mg/dL (8.6-10.3); Carbon Dioxide 41 mEq/L (23-29); Chloride 97 mEq/L (98-107); Globulin 2.3 g/dL (2.4-3.5); Glucose 250 mg/dL (70-105); Osmolality,Calculated 305 (280-300); Potassium 4.3 mEq/L (3.5-5.1); Sodium 140 mEq/L (136-145); Total Protein 5.6 g/dL (6.4-8.9); eGFR For African Americans > 60 (> 60); eGFR For Non-African Americans > 60 (> 60)
[2021-04-03] MEDS: predniSONE 20 MG TABLET PO SCH (08:36)
[2021-04-03] MEDS ORDERED: predniSONE 20 MG TABLET PO SCH (09:00)
[2021-04-03] MEDS ORDERED: Pantoprazole 40 MG VIAL IVP SCH ×2 (09:00)
[2021-04-03] MEDS ORDERED: Apixaban 5 MG TABLET GTUBE SCH (09:00)
[2021-04-03] MEDS: *HR* Metoprolol 5 MG/5 ML VIAL IVP PRN ×2 (09:39→16:36)
[2021-04-03] MEDS: Budesonide/Formoterol 160/4.5 1 PUFF INH IH SCH (20:18)
[2021-04-03] MEDS: Apixaban 5 MG TABLET PO SCH (21:02)
[2021-04-04] MEDS: levoFLOXacin 750 MG/150 ML 750 MG/150 ML BAG IVPB SCH (02:54)
[2021-04-04] MEDS: Levalbuterol Neb 1.25 MG/3 ML IH SCH ×4 (04:07→20:36)
[2021-04-04] MEDS: Insulin LISPRO 300 UNITS/3 ML VIAL SUBQ SCH ×4 (07:36→21:45)
[2021-04-04] MEDS: Budesonide/Formoterol 160/4.5 1 PUFF INH IH SCH ×2 (08:27→20:36)
[2021-04-04] MEDS: Thiamine (B-1) 100 MG TABLET PO SCH (09:27)
[2021-04-04] MEDS: predniSONE 20 MG TABLET PO SCH (09:27)
[2021-04-04] MEDS: Folic Acid 1 MG TABLET PO SCH (09:27)
[2021-04-04] MEDS: Apixaban 5 MG TABLET PO SCH ×2 (09:27→19:30)
[2021-04-04 12:25] LABS: Basophils % 0.1 %; Eosinophils # 0.1 K/mcL (0.0-0.6); Eosinophils % 0.4 %; Hematocrit 39.2 % (35.3-44.9); Hemoglobin 12.3 g/dL (11.5-15.4); Lymphocytes # 0.3 K/mcL (0.6-4.6); Lymphocytes % 2.8 %; Mean Corpuscular HGB Conc 31.4 g/dL (31.6-35.5); Mean Corpuscular Hemoglobin 30.5 pg (28.0-33.3); Mean Corpuscular Volume 97.3 fL (83.0-100.0); Mean Platelet Volume 10.5 fL (9.4-12.4); Monocytes # 0.4 K/mcL (0.0-1.3); Monocytes % 3.3 %; Neutrophils # 10.9 K/mcL (1.6-8.9); Platelet Count 160 K/mcL (140-400); Red Blood Count 4.03 M/mcL (3.82-4.97); Red Cell Distribution Width 13.2 % (11.5-14.5); Segmented Neutrophils % 92.4 %
[2021-04-04 12:32] LABS: VBG Ionized Calcium 1.19 mmol/L (1.15-1.35)
[2021-04-04 12:39] LABS: White Blood Count 11.8 K/mcL (4.3-11.1)
[2021-04-04 13:15] LABS: Alanine Aminotransferase 17 Units/L (7-52); Albumin 3.2 g/dL (3.5-5.7); Albumin/Globulin Ratio 1.5 (1.1-2.2); Alkaline Phosphatase 190 Units/L (34-104); Aspartate Amino Transferase 14 Units/L (13-39); BUN/Creatinine Ratio 36 (6-26); Bilirubin,Direct 0.2 mg/dL (0.0-0.2); Bilirubin,Indirect 0.6 mg/dL (0.0-1.0); Bilirubin,Total 0.8 mg/dL (0.3-1.0); Blood Urea Nitrogen 20 mg/dL (8-23); Calcium 8.6 mg/dL (8.6-10.3); Carbon Dioxide 40 mEq/L (23-29); Chloride 94 mEq/L (98-107); Globulin 2.1 g/dL (2.4-3.5); Glucose 316 mg/dL (70-105); Magnesium 1.7 mg/dL (1.6-2.6); Osmolality,Calculated 297 (280-300); Phosphorous 1.8 mg/dL (2.7-4.5); Potassium 4.7 mEq/L (3.5-5.1); Sodium 136 mEq/L (136-145); Total Protein 5.3 g/dL (6.4-8.9); eGFR For African Americans > 60 (> 60); eGFR For Non-African Americans > 60 (> 60)
[2021-04-04] MEDS ORDERED: Fat Emulsion 250 ML IVPB SCH ×2 (17:00)
[2021-04-04] MEDS ORDERED: *HR* Digoxin 0.5 MG/2 ML AMPUL IVP ONE (17:25)
[2021-04-04] MEDS: DilTIAZem CD (24hr) 120 MG CAP.ER.24H PO SCH (17:36)
[2021-04-05] MEDS: Levalbuterol Neb 1.25 MG/3 ML IH SCH ×2 (04:13→07:19)
[2021-04-05 05:57] VITALS: PULSE 65
[2021-04-05 06:48] LABS: Hemoglobin 11.3 g/dL (11.5-15.4)
[2021-04-05 06:50] LABS: Eosinophils # 0.1 K/mcL (0.0-0.6); Eosinophils % 1.6 %; Immature Granulocytes % 0.3 % (0-4); Immature Platelets 7.3 % (1.1-6.1); Lymphocytes # 0.7 K/mcL (0.6-4.6); Lymphocytes % 12.5 %; Mean Corpuscular HGB Conc 31.4 g/dL (31.6-35.5); Mean Corpuscular Hemoglobin 29.8 pg (28.0-33.3); Mean Platelet Volume 10.6 fL (9.4-12.4); Monocytes # 0.3 K/mcL (0.0-1.3); Monocytes % 5.2 %; Neutrophils # 4.6 K/mcL (1.6-8.9); Platelet Count 137 K/mcL (140-400); Red Blood Count 3.79 M/mcL (3.82-4.97); Segmented Neutrophils % 80.4 %; White Blood Count 5.7 K/mcL (4.3-11.1)
[2021-04-05 07:14] LABS: BUN/Creatinine Ratio 30 (6-26); Blood Urea Nitrogen 16 mg/dL (8-23); Calcium 8.5 mg/dL (8.6-10.3); Carbon Dioxide 42 mEq/L (23-29); Chloride 98 mEq/L (98-107); Glucose 111 mg/dL (70-105); Magnesium 1.7 mg/dL (1.6-2.6); Osmolality,Calculated 298 (280-300); Phosphorous 1.8 mg/dL (2.7-4.5); Sodium 143 mEq/L (136-145); eGFR For African Americans > 60 (> 60); eGFR For Non-African Americans > 60 (> 60)
[2021-04-05] MEDS: Budesonide/Formoterol 160/4.5 1 PUFF INH IH SCH (07:19)
[2021-04-05 07:32] VITALS: BP 138/76; TEMP 97.6; O2SAT 100
[2021-04-05] MEDS: Insulin LISPRO 300 UNITS/3 ML VIAL SUBQ SCH (08:27)
[2021-04-05] MEDS: DilTIAZem CD (24hr) 120 MG CAP.ER.24H PO SCH (08:32)
[2021-04-05] MEDS: Thiamine (B-1) 100 MG TABLET PO SCH (08:32)
[2021-04-05] MEDS: predniSONE 20 MG TABLET PO SCH (08:33)
[2021-04-05] MEDS: Folic Acid 1 MG TABLET PO SCH (08:33)
[2021-04-05] MEDS: Apixaban 5 MG TABLET PO SCH (08:33)
== END 2021-04-05 13:32 | disposition home or self-care (01) | DRG 871 ==
LOC: EMEROOARM 22:04 → ICNU 22:04 → SUATTDRO 03-28 03:51 → 2ANU 04-03 00:33
PROVIDERS: ADMIT Internal Medicine; ATTEND Internal Medicine

== ENCOUNTER 2021-05-26 19:22 | Inpatient (IN) ==
[2021-05-26] MEDS ORDERED: 0.9 % Sodium Chloride 1,000 ML IVC ONE ×2 (20:12→21:25)
[2021-05-26 20:54] LABS: Amphetamine Screen,Urine Negative ng/mL (Cutoff=1000); Barbiturate Screen,Urine Negative ng/mL (Cutoff=200); Benzodiazepines Screen,Urine Negative ng/mL (Cutoff=200); Cannabinoid Screen,Urine Negative ng/mL (Cutoff = 50); Cocaine Screen,Urine Negative ng/mL (Cutoff= 300); Opiate Screen,Urine Negative ng/mL (Cutoff=300); Phencyclidine Screen,Urine Negative ng/mL (Cutoff=25)
[2021-05-26 20:55] LABS: INR 1.2; Prothrombin Time 13.5 Seconds (9.4-12.1)
[2021-05-26 20:57] LABS: Activated Partial Thrombo Time 36.4 Seconds (26.0-36.0)
[2021-05-26 21:00] LABS: Bilirubin,Urine Negative (Negative); Blood,Urine Negative (Negative); Clarity,Urine Turbid (Clear); Color,Urine Light-Yellow (Yellow); Glucose,Urine (UA) Normal (Normal); Hyaline Casts,Urine Few per lpf (None Seen); Ketones,Urine Negative (Negative); Leukocyte Esterase,Urine Negative (Negative); Mucus,Urine Few per lpf (None-Few); Nitrite,Urine Negative (Negative); PH,Urine 5.5 pH Units (5.0-8.0); Protein,Urine 30 mg/dL (Neg-Trace); RBC,Urine 0-3 per hpf (0-3); Specific Gravity,Urine 1.011 (1.010-1.025); Squamous Epithelial Cell,Urine Few per hpf (None-Few); Urobilinogen,Urine Normal (Normal); WBC,Urine 0-3 per hpf (0-3)
[2021-05-26 21:11] LABS: Alanine Aminotransferase 17 Units/L (7-52); Albumin 3.5 g/dL (3.5-5.7); Albumin/Globulin Ratio 1.4 (1.1-2.2); Alkaline Phosphatase 120 Units/L (34-104); Aspartate Amino Transferase 18 Units/L (13-39); BUN/Creatinine Ratio 42 (6-26); Bilirubin,Direct 0.1 mg/dL (0.0-0.2); Bilirubin,Indirect 0.3 mg/dL (0.0-1.0); Bilirubin,Total 0.4 mg/dL (0.3-1.0); Blood Urea Nitrogen 86 mg/dL (8-23); Calcium 8.4 mg/dL (8.6-10.3); Carbon Dioxide 21 mEq/L (23-29); Chloride 98 mEq/L (98-107); Ethanol < 10 mg/dL (Less than 10); Globulin 2.5 g/dL (2.4-3.5); Glucose 95 mg/dL (70-105); Osmolality,Calculated 292 (280-300); Potassium 4.2 mEq/L (3.5-5.1); Sodium 128 mEq/L (136-145); Troponin I 0.03 ng/mL (< 0.04); eGFR For African Americans 29 (> 60); eGFR For Non-African Americans 24 (> 60)
[2021-05-26 21:27] LABS: Basophils % 0.2 %; Eosinophils # 0.1 K/mcL (0.0-0.6); Eosinophils % 1.9 %; Hematocrit 31.1 % (35.3-44.9); Hemoglobin 10.3 g/dL (11.5-15.4); Immature Granulocytes % 0.2 % (0-4); Lymphocytes # 1.5 K/mcL (0.6-4.6); Lymphocytes % 28.4 %; Mean Corpuscular HGB Conc 33.1 g/dL (31.6-35.5); Mean Corpuscular Hemoglobin 29.5 pg (28.0-33.3); Mean Corpuscular Volume 89.1 fL (83.0-100.0); Monocytes # 0.4 K/mcL (0.0-1.3); Neutrophils # 3.2 K/mcL (1.6-8.9); Platelet Count 172 K/mcL (140-400); Red Blood Count 3.49 M/mcL (3.82-4.97); Red Cell Distribution Width 15.5 % (11.5-14.5); Segmented Neutrophils % 61.3 %; White Blood Count 5.2 K/mcL (4.3-11.1)
[2021-05-26] MEDS ORDERED: Naloxone 0.4 MG/ML INJ IVP PRN (22:25)
[2021-05-26] MEDS ORDERED: 0.9 % Sodium Chloride 1,000 ML IVC SCH (23:00)
[2021-05-26 23:06] LABS: Adenovirus Not Detected (Not Detect); Bordetella Pertussis Not Detected (Not Detect); Chlamydophila pneumoniae Not Detected (Not Detect); Coronavirus 229E Not Detected (Not Detect); Coronavirus HKU1 Not Detected (Not Detect); Coronavirus NL63 Not Detected (Not Detect); Coronavirus OC43 Not Detected (Not Detect); Human Metapneumovirus Not Detected (Not Detect); Human Rhinovirus/Enterovirus Not Detected (Not Detect); Influenza A Subtype 2009 H1 Not Detected (Not Detect); Influenza B Not Detected (Not Detect); Mycoplasma pneumoniae Not Detected (Not Detect); Parainfluenza Virus 1 Not Detected (Not Detect); Parainfluenza Virus 2 Not Detected (Not Detect); Parainfluenza Virus 3 Not Detected (Not Detect); Parainfluenza Virus 4 Not Detected (Not Detect); Respiratory Syncytial Virus Not Detected (Not Detect); SARS-CoV-2 Not Detected (Not Detect)
[2021-05-26] MEDS ORDERED: 0.9 % Sodium Chloride 500 ML IVC ONE (23:06)
[2021-05-26 23:56] LABS: Magnesium 1.7 mg/dL (1.6-2.6)
[2021-05-27] MEDS ORDERED: Magnesium Sulfate 1 GM/102 ML PIGGYBACK IVPB ONE (00:04)
[2021-05-27] MEDS: Apixaban 5 MG TABLET PO SCH ×3 (00:37→22:24)
[2021-05-27] MEDS ORDERED: Amiodarone Premix 150 MG/100 ML BAG IVPB ONE (01:00)
[2021-05-27] MEDS ORDERED: Amiodarone Premix 360 MG/200 ML BAG IVC ONE (01:00)
[2021-05-27] MEDS ORDERED: Albumin 25% 25gram/100mL 25 GM/100 ML IV.SOLN IVPB ONE (03:18)
[2021-05-27 04:39] LABS: VBG HCO3 20 mEq/L (21-27); VBG PCO2 52 mmHg (41-51); VBG PH 7.19 pH Units (7.32-7.42); VBG PO2 107 mmHg (25-50)
[2021-05-27 04:40] LABS: Basophils % 0.2 %; Eosinophils # 0.1 K/mcL (0.0-0.6); Eosinophils % 1.7 %; Hematocrit 31.9 % (35.3-44.9); Hemoglobin 10.3 g/dL (11.5-15.4); Immature Granulocytes % 0.5 % (0-4); Lymphocytes # 1.1 K/mcL (0.6-4.6); Lymphocytes % 16.3 %; Mean Corpuscular HGB Conc 32.3 g/dL (31.6-35.5); Mean Corpuscular Hemoglobin 29.5 pg (28.0-33.3); Mean Corpuscular Volume 91.4 fL (83.0-100.0); Monocytes # 0.5 K/mcL (0.0-1.3); Monocytes % 7.9 %; Neutrophils # 4.8 K/mcL (1.6-8.9); Platelet Count 182 K/mcL (140-400); Red Blood Count 3.49 M/mcL (3.82-4.97); Red Cell Distribution Width 15.8 % (11.5-14.5); Segmented Neutrophils % 73.4 %; White Blood Count 6.5 K/mcL (4.3-11.1)
[2021-05-27 04:58] LABS: Albumin 3.3 g/dL (3.5-5.7); Albumin/Globulin Ratio 1.3 (1.1-2.2); Bilirubin,Total 0.3 mg/dL (0.3-1.0); Calcium 7.9 mg/dL (8.6-10.3); Globulin 2.6 g/dL (2.4-3.5); Phosphorous 3.7 mg/dL (2.7-4.5); Total Protein 5.9 g/dL (6.4-8.9)
[2021-05-27 05:00] LABS: % Iron Saturation 39 % (15-50); Iron 111 mcg/dL (50-170); Transferrin 204 mg/dL (203-362)
[2021-05-27] MEDS ORDERED: Calcium Gluconate 1gm/50mL 1 GM/50 ML BAG IVPB ONE (05:12)
[2021-05-27 05:13] LABS: Thyroid Stimulating Hormone 0.551 mcIU/mL (0.340-5.600)
[2021-05-27] MEDS ORDERED: Sodium Bicarbonate 50 MEQ in 0.45 % Sodium Chloride 1,000 ML IVC SCH (05:15)
[2021-05-27 05:18] LABS: Ferritin 247 ng/mL (10-120)
[2021-05-27 05:25] LABS: Folate > 22.3 ng/mL (3.0-16.0); Vitamin B12 > 1500 pg/mL (250-1100)
[2021-05-27] MEDS: Amiodarone Premix 360 MG/200 ML BAG IVC SCH (06:47)
[2021-05-27] MEDS: Budesonide/Formoterol 160/4.5 1 PUFF INH IH SCH ×2 (08:11→20:21)
[2021-05-27] MEDS ORDERED: Ipratropium/Albuterol Neb 3 ML IH PRN (08:24)
[2021-05-27] MEDS: Calcium Gluconate 1gm/50mL 1 GM/50 ML BAG IVPB ONE ×2 (10:26→11:01)
[2021-05-27] MEDS: Sodium Bicarbonate 150 MEQ in D5% in Water 1,000 ML IVC SCH (16:02)
[2021-05-27 16:06] LABS: ABG Base Excess -3 mEq/L (-2 to 3); ABG HCO3 25 mEq/L (21-27); ABG Oxygen Saturation 95 % (95-98); ABG PCO2 62 mmHg (35-45); ABG PH 7.21 pH Units (7.32-7.45); ABG PO2 96 mmHg (85-104); ABG TCO2 27 mEq/L (20-26)
[2021-05-27] MEDS ORDERED: Perflutren Lipid Microsphere 1.3 ML in 0.9 % Sodium Chloride 8.7 ML IVP PRN (16:55)
[2021-05-27] MEDS: Ipratropium/Albuterol Neb 3 ML IH SCH (20:21)
[2021-05-27] MEDS: Melatonin 3 MG TABLET PO PRN (22:24)
[2021-05-27] MEDS: Metoprolol 100 MG TABLET PO SCH (22:24)
[2021-05-28] MEDS: Ipratropium/Albuterol Neb 3 ML IH SCH ×7 (00:03→23:41)
[2021-05-28 05:56] LABS: Basophils % 0.3 %; Eosinophils # 0.1 K/mcL (0.0-0.6); Eosinophils % 2.1 %; Hematocrit 25.9 % (35.3-44.9); Immature Granulocytes % 0.3 % (0-4); Lymphocytes # 0.7 K/mcL (0.6-4.6); Lymphocytes % 19.6 %; Mean Corpuscular HGB Conc 33.6 g/dL (31.6-35.5); Mean Corpuscular Hemoglobin 29.9 pg (28.0-33.3); Mean Platelet Volume 10.7 fL (9.4-12.4); Monocytes # 0.3 K/mcL (0.0-1.3); Neutrophils # 2.3 K/mcL (1.6-8.9); Platelet Count 121 K/mcL (140-400); Red Blood Count 2.91 M/mcL (3.82-4.97); Segmented Neutrophils % 67.7 %; White Blood Count 3.4 K/mcL (4.3-11.1)
[2021-05-28 06:01] LABS: Hemoglobin 8.7 g/dL (11.5-15.4)
[2021-05-28 06:17] LABS: BUN/Creatinine Ratio 67 (6-26); Blood Urea Nitrogen 35 mg/dL (8-23); Calcium 8.2 mg/dL (8.6-10.3); Carbon Dioxide 33 mEq/L (23-29); Chloride 105 mEq/L (98-107); Glucose 159 mg/dL (70-105); Magnesium 1.6 mg/dL (1.6-2.6); Osmolality,Calculated 301 (280-300); Phosphorous 1.6 mg/dL (2.7-4.5); Potassium 3.7 mEq/L (3.5-5.1); Sodium 140 mEq/L (136-145); eGFR For African Americans > 60 (> 60); eGFR For Non-African Americans > 60 (> 60)
[2021-05-28] MEDS: MethylPREDNISolone 40 MG/ML VIAL IVP SCH ×3 (07:10→16:34)
[2021-05-28] MEDS: Sodium Bicarbonate 150 MEQ in D5% in Water 1,000 ML IVC SCH ×2 (07:55→22:28)
[2021-05-28] MEDS: Budesonide/Formoterol 160/4.5 1 PUFF INH IH SCH ×2 (08:22→20:19)
[2021-05-28] MEDS: Metoprolol 100 MG TABLET PO SCH ×2 (08:47→20:15)
[2021-05-28] MEDS: Apixaban 5 MG TABLET PO SCH ×2 (08:47→20:15)
[2021-05-28] MEDS: DilTIAZem CD (24hr) 120 MG CAP.ER.24H PO SCH (09:58)
[2021-05-28] MEDS: Melatonin 3 MG TABLET PO PRN (22:59)
[2021-05-29] MEDS: Ipratropium/Albuterol Neb 3 ML IH SCH ×5 (03:49→20:49)
[2021-05-29] MEDS: MethylPREDNISolone 40 MG/ML VIAL IVP SCH ×2 (05:20→16:33)
[2021-05-29 05:48] LABS: Hemoglobin 7.7 g/dL (11.5-15.4); Immature Granulocytes % 0.5 % (0-4); Immature Platelets 6.2 % (1.1-6.1); Lymphocytes # 0.3 K/mcL (0.6-4.6); Lymphocytes % 11.8 %; Mean Corpuscular HGB Conc 32.1 g/dL (31.6-35.5); Mean Corpuscular Hemoglobin 29.5 pg (28.0-33.3); Mean Platelet Volume 11.6 fL (9.4-12.4); Monocytes # 0.1 K/mcL (0.0-1.3); Monocytes % 4.1 %; Neutrophils # 1.9 K/mcL (1.6-8.9); Platelet Count 120 K/mcL (140-400); Red Blood Count 2.61 M/mcL (3.82-4.97); Red Cell Distribution Width 15.9 % (11.5-14.5); Segmented Neutrophils % 83.6 %; White Blood Count 2.2 K/mcL (4.3-11.1)
[2021-05-29 06:17] LABS: Calcium 8.1 mg/dL (8.6-10.3); Carbon Dioxide 43 mEq/L (23-29); Chloride 95 mEq/L (98-107); Glucose 284 mg/dL (70-105); Magnesium 1.3 mg/dL (1.6-2.6); Phosphorous 1.7 mg/dL (2.7-4.5); Sodium 143 mEq/L (136-145); eGFR For African Americans > 60 (> 60); eGFR For Non-African Americans > 60 (> 60)
[2021-05-29 06:42] LABS: BUN/Creatinine Ratio 36 (6-26); Blood Urea Nitrogen 21 mg/dL (8-23); Osmolality,Calculated 309 (280-300)
[2021-05-29] MEDS: Budesonide/Formoterol 160/4.5 1 PUFF INH IH SCH ×2 (07:36→20:49)
[2021-05-29] MEDS ORDERED: acetaZOLAMIDE 375 MG in Water for inj. (sterile) 3.75 ML IVP ONE (08:25)
[2021-05-29] MEDS: Metoprolol 100 MG TABLET PO SCH ×2 (09:01→21:29)
[2021-05-29] MEDS: Apixaban 5 MG TABLET PO SCH ×2 (09:01→21:28)
[2021-05-29] MEDS: DilTIAZem CD (24hr) 120 MG CAP.ER.24H PO SCH (09:01)
[2021-05-29] MEDS: *HR* LORazepam 2 MG/ML VIAL IVP PRN ×2 (09:46→21:37)
[2021-05-29 09:51] LABS: ABG Base Excess 15 mEq/L (-2 to 3); ABG HCO3 42 mEq/L (21-27); ABG Oxygen Saturation 97 % (95-98); ABG PCO2 72 mmHg (35-45); ABG PH 7.38 pH Units (7.32-7.45); ABG PO2 101 mmHg (85-104); ABG TCO2 45 mEq/L (20-26)
[2021-05-29] MEDS: Sodium Bicarbonate 150 MEQ in D5% in Water 1,000 ML IVC SCH (10:51)
[2021-05-29] MEDS: Amiodarone Premix 360 MG/200 ML BAG IVC SCH (14:22)
[2021-05-29] MEDS: Melatonin 3 MG TABLET PO PRN (21:28)
[2021-05-30] MEDS: Ipratropium/Albuterol Neb 3 ML IH SCH ×5 (00:52→15:34)
[2021-05-30 05:06] LABS: Basophils % 0.2 %; Hematocrit 26.5 % (35.3-44.9); Hemoglobin 8.2 g/dL (11.5-15.4); Immature Granulocytes % 1.3 % (0-4); Lymphocytes # 0.3 K/mcL (0.6-4.6); Lymphocytes % 6.2 %; Mean Corpuscular HGB Conc 30.9 g/dL (31.6-35.5); Mean Corpuscular Hemoglobin 29.3 pg (28.0-33.3); Mean Corpuscular Volume 94.6 fL (83.0-100.0); Mean Platelet Volume 10.8 fL (9.4-12.4); Monocytes # 0.1 K/mcL (0.0-1.3); Monocytes % 2.6 %; Neutrophils # 4.8 K/mcL (1.6-8.9); Platelet Count 150 K/mcL (140-400); Red Cell Distribution Width 15.6 % (11.5-14.5); Segmented Neutrophils % 89.7 %
[2021-05-30 05:08] LABS: White Blood Count 5.3 K/mcL (4.3-11.1)
[2021-05-30 05:23] LABS: BUN/Creatinine Ratio 38 (6-26); Blood Urea Nitrogen 26 mg/dL (8-23); Calcium 8.7 mg/dL (8.6-10.3); Carbon Dioxide 39 mEq/L (23-29); Chloride 93 mEq/L (98-107); Glucose 263 mg/dL (70-105); Magnesium 1.7 mg/dL (1.6-2.6); Osmolality,Calculated 294 (280-300); Phosphorous 2.7 mg/dL (2.7-4.5); Potassium 4.8 mEq/L (3.5-5.1); Sodium 135 mEq/L (136-145); eGFR For African Americans > 60 (> 60); eGFR For Non-African Americans > 60 (> 60)
[2021-05-30] MEDS: MethylPREDNISolone 40 MG/ML VIAL IVP SCH (06:15)
[2021-05-30] MEDS: Budesonide/Formoterol 160/4.5 1 PUFF INH IH SCH (07:35)
[2021-05-30] MEDS: Apixaban 5 MG TABLET PO SCH (09:04)
[2021-05-30] MEDS: Metoprolol 100 MG TABLET PO SCH (09:04)
[2021-05-30] MEDS: DilTIAZem CD (24hr) 120 MG CAP.ER.24H PO SCH (09:04)
[2021-05-30 11:10] VITALS: BP 122/85; PULSE 95; TEMP 97.8
[2021-05-30 15:33] VITALS: O2SAT 97
== END 2021-05-30 15:43 | disposition home or self-care (01) | DRG 308 ==
LOC: EMEROOARM 19:22 → 3NENU 19:22 → 2NENU 22:03
PROVIDERS: ADMIT Student in an Organized Health Care Education/Training Program; ATTEND Student in an Organized Health Care Education/Training Program

== ENCOUNTER 2021-06-01 21:17 | Inpatient (IN) ==
[2021-06-01 21:54] LABS: Hematocrit 34.7 % (35.3-44.9); Mean Corpuscular HGB Conc 31.4 g/dL (31.6-35.5); Mean Corpuscular Hemoglobin 30.4 pg (28.0-33.3); Mean Corpuscular Volume 96.7 fL (83.0-100.0); Mean Platelet Volume 10.8 fL (9.4-12.4); Nucleated Red Blood Cells 0.2 /100 WBC (0); Platelet Count 233 K/mcL (140-400); Red Blood Count 3.59 M/mcL (3.82-4.97); Red Cell Distribution Width 15.2 % (11.5-14.5)
[2021-06-01 21:57] LABS: VBG HCO3 38 mEq/L (21-27); VBG PCO2 61 mmHg (41-51); VBG PO2 64 mmHg (25-50)
[2021-06-01 21:58] LABS: Hemoglobin 10.9 g/dL (11.5-15.4); White Blood Count 16.5 K/mcL (4.3-11.1)
[2021-06-01 22:16] LABS: Neutrophils # 15.5 K/mcL (1.6-8.9)
[2021-06-01 22:18] LABS: Bacteria,Urine Few per hpf (None-Few); Bilirubin,Urine Negative (Negative); Blood,Urine Trace (Negative); Clarity,Urine Clear (Clear); Color,Urine Yellow (Yellow); Glucose,Urine (UA) 100 mg/dL (Normal); Hyaline Casts,Urine Few per lpf (None Seen); Ketones,Urine Negative (Negative); Leukocyte Esterase,Urine Trace (Negative); Mucus,Urine Few per lpf (None-Few); Nitrite,Urine Negative (Negative); Protein,Urine 50 mg/dL (Neg-Trace); RBC,Urine 0-3 per hpf (0-3); Specific Gravity,Urine 1.018 (1.010-1.025); Squamous Epithelial Cell,Urine Few per hpf (None-Few); Urobilinogen,Urine Normal (Normal)
[2021-06-01] MEDS ORDERED: Piperacillin/Tazobactam 3.375 GM in 0.9 % Sodium Chloride Mini Bag 100 ML IVPB ONE (22:27)
[2021-06-01 22:34] LABS: Alanine Aminotransferase 22 Units/L (7-52); Albumin 3.8 g/dL (3.5-5.7); Albumin/Globulin Ratio 1.6 (1.1-2.2); Alkaline Phosphatase 209 Units/L (34-104); Aspartate Amino Transferase 18 Units/L (13-39); BUN/Creatinine Ratio 37 (6-26); Bilirubin,Direct 0.3 mg/dL (0.0-0.2); Bilirubin,Indirect 0.9 mg/dL (0.0-1.0); Bilirubin,Total 1.2 mg/dL (0.3-1.0); Blood Urea Nitrogen 23 mg/dL (8-23); Calcium 9.4 mg/dL (8.6-10.3); Carbon Dioxide 38 mEq/L (23-29); Chloride 93 mEq/L (98-107); Globulin 2.4 g/dL (2.4-3.5); Glucose 251 mg/dL (70-105); Magnesium 1.1 mg/dL (1.6-2.6); Osmolality,Calculated 298 (280-300); Potassium 4.6 mEq/L (3.5-5.1); Sodium 138 mEq/L (136-145); Total Protein 6.2 g/dL (6.4-8.9); Troponin I 0.06 ng/mL (< 0.04); eGFR For African Americans > 60 (> 60); eGFR For Non-African Americans > 60 (> 60)
[2021-06-01] MEDS: 0.9 % Sodium Chloride 1,000 ML IVC SCH ×2 (22:48→23:39)
[2021-06-01 23:01] LABS: Adenovirus Not Detected (Not Detect); Bordetella Pertussis Not Detected (Not Detect); Chlamydophila pneumoniae Not Detected (Not Detect); Coronavirus 229E Not Detected (Not Detect); Coronavirus HKU1 Not Detected (Not Detect); Coronavirus NL63 Not Detected (Not Detect); Coronavirus OC43 Not Detected (Not Detect); Human Metapneumovirus Not Detected (Not Detect); Human Rhinovirus/Enterovirus Not Detected (Not Detect); Influenza A Subtype 2009 H1 Not Detected (Not Detect); Influenza B Not Detected (Not Detect); Mycoplasma pneumoniae Not Detected (Not Detect); Parainfluenza Virus 1 Not Detected (Not Detect); Parainfluenza Virus 2 Not Detected (Not Detect); Parainfluenza Virus 3 Not Detected (Not Detect); Parainfluenza Virus 4 Not Detected (Not Detect); Respiratory Syncytial Virus Not Detected (Not Detect); SARS-CoV-2 Not Detected (Not Detect)
[2021-06-01] MEDS ORDERED: DilTIAZem 50 MG/50 ML IV.SOLN IVC SCH (23:30)
[2021-06-01 23:58] LABS: ABG Base Excess 6 mEq/L (-2 to 3); ABG HCO3 35 mEq/L (21-27); ABG Oxygen Saturation 97 % (95-98); ABG PCO2 76 mmHg (35-45); ABG PH 7.27 pH Units (7.32-7.45); ABG PO2 103 mmHg (85-104); ABG TCO2 37 mEq/L (20-26)
[2021-06-02] MEDS ORDERED: Melatonin 3 MG TABLET PO PRN ×2 (01:08→07:13)
[2021-06-02] MEDS ORDERED: Acetaminophen 325 MG TABLET PO PRN ×2 (01:08→07:13)
[2021-06-02] MEDS ORDERED: Naloxone 0.4 MG/ML INJ IVP PRN ×2 (01:08→07:13)
[2021-06-02] MEDS ORDERED: Ondansetron 4 MG/2 ML VIAL IVP PRN ×2 (01:08→07:13)
[2021-06-02] MEDS ORDERED: Magnesium Sulfate 1 GM/102 ML PIGGYBACK IVPB ONE ×2 (01:11→04:34)
[2021-06-02] MEDS ORDERED: Acetaminophen IV 1,000 MG/100 ML BAG IVPB ONE (01:17)
[2021-06-02 02:18] LABS: Basophils % 0.2 %; Hematocrit 33.3 % (35.3-44.9); Hemoglobin 10.2 g/dL (11.5-15.4); Immature Granulocytes % 0.6 % (0-4); Lymphocytes # 0.2 K/mcL (0.6-4.6); Lymphocytes % 0.8 %; Mean Corpuscular HGB Conc 30.6 g/dL (31.6-35.5); Mean Corpuscular Hemoglobin 30.2 pg (28.0-33.3); Mean Corpuscular Volume 98.5 fL (83.0-100.0); Mean Platelet Volume 10.9 fL (9.4-12.4); Monocytes # 0.6 K/mcL (0.0-1.3); Monocytes % 2.8 %; Neutrophils # 21.4 K/mcL (1.6-8.9); Nucleated Red Blood Cells 0.2 /100 WBC (0); Platelet Count 226 K/mcL (140-400); Red Blood Count 3.38 M/mcL (3.82-4.97); Red Cell Distribution Width 15.3 % (11.5-14.5); Segmented Neutrophils % 95.6 %; White Blood Count 22.4 K/mcL (4.3-11.1)
[2021-06-02 02:27] LABS: INR 1.3; Prothrombin Time 14.5 Seconds (9.4-12.1)
[2021-06-02 02:31] LABS: Platelet Estimate Normal (Normal)
[2021-06-02] MEDS ORDERED: 0.9 % Sodium Chloride 1,000 ML IVC ONE ×2 (02:33→03:05)
[2021-06-02] MEDS ORDERED: Dextrose 4 GM Chewable Tablets PO PRN ×4 (02:55→07:13)
[2021-06-02] MEDS ORDERED: D5% in Water 1,000 ML IVC PRN ×2 (02:55→07:13)
[2021-06-02] MEDS ORDERED: Albuterol 2.5 MG/3 ML NEBULIZER IH PRN ×2 (02:55→07:13)
[2021-06-02] MEDS ORDERED: *HR* Dextrose 50 % in Water (Syg) 50 ML SYRINGE IVP PRN ×2 (02:55→07:13)
[2021-06-02] MEDS ORDERED: 0.9 % Sodium Chloride 1,000 ML ONE (03:06)
[2021-06-02 03:40] LABS: Alanine Aminotransferase 22 Units/L (7-52); Alkaline Phosphatase 167 Units/L (34-104); Aspartate Amino Transferase 19 Units/L (13-39); BUN/Creatinine Ratio 34 (6-26); Bilirubin,Total 0.9 mg/dL (0.3-1.0); Blood Urea Nitrogen 21 mg/dL (8-23); Calcium 7.9 mg/dL (8.6-10.3); Carbon Dioxide 34 mEq/L (23-29); Chloride 99 mEq/L (98-107); Glucose 235 mg/dL (70-105); Magnesium 0.9 mg/dL (1.6-2.6); Osmolality,Calculated 299 (280-300); Phosphorous 2.2 mg/dL (2.7-4.5); Sodium 139 mEq/L (136-145); eGFR For African Americans > 60 (> 60); eGFR For Non-African Americans > 60 (> 60)
[2021-06-02 04:00] LABS: Albumin/Globulin Ratio 1.5 (1.1-2.2)
[2021-06-02 04:44] LABS: Troponin I 0.08 ng/mL (< 0.04)
[2021-06-02] MEDS ORDERED: Albumin Human 5% 12.5 GM/250 ML IV.SOLN IVC SCH ×2 (04:45→07:13)
[2021-06-02] MEDS: Albumin Human 5% 12.5 GM/250 ML IV.SOLN IVC SCH ×2 (04:48→05:33)
[2021-06-02] MEDS ORDERED: Levalbuterol Neb 1.25 MG/3 ML IH SCH (05:15)
[2021-06-02 05:35] LABS: ABG Base Excess 4 mEq/L (-2 to 3); ABG HCO3 33 mEq/L (21-27); ABG Oxygen Saturation 90 % (95-98); ABG PCO2 76 mmHg (35-45); ABG PH 7.24 pH Units (7.32-7.45); ABG PO2 71 mmHg (85-104); ABG TCO2 35 mEq/L (20-26); Blood Gas Modality BiLevel; Blood Gas Pressure Support 7 cm H2O
[2021-06-02] MEDS ORDERED: Insulin LISPRO 300 UNITS/3 ML VIAL SUBQ SCH (06:00)
[2021-06-02] MEDS ORDERED: Hydrocortisone Sodium Succ 100 MG/2 ML VIAL IVP SCH (06:00)
[2021-06-02 07:51] LABS: ABG Base Excess 5 mEq/L (-2 to 3); ABG HCO3 33 mEq/L (21-27); ABG Oxygen Saturation 95 % (95-98); ABG PCO2 66 mmHg (35-45); ABG PO2 87 mmHg (85-104); ABG TCO2 35 mEq/L (20-26); Blood Gas VT 435 cc
[2021-06-02] MEDS ORDERED: Levalbuterol Neb 1.25 MG/3 ML ONE (07:53)
[2021-06-02] MEDS: Levalbuterol Neb 1.25 MG/3 ML IH SCH ×3 (07:58→21:40)
[2021-06-02] MEDS ORDERED: Piperacillin/Tazobactam 3.375 GM in 0.9 % Sodium Chloride Mini Bag 100 ML IVPB SCH (08:00)
[2021-06-02] MEDS: Piperacillin/Tazobactam 3.375 GM in 0.9 % Sodium Chloride Mini Bag 100 ML IVPB SCH ×3 (08:30→23:51)
[2021-06-02] MEDS: Norepinephrine 4 MG/254 ML IV.SOLN IVC SCH (08:52)
[2021-06-02] MEDS ORDERED: Apixaban 5 MG TABLET PO SCH ×2 (09:00)
[2021-06-02] MEDS ORDERED: Famotidine 20 MG/2 ML VIAL IVP ONE (09:10)
[2021-06-02] MEDS: Insulin LISPRO 300 UNITS/3 ML VIAL SUBQ SCH ×2 (13:31→17:55)
[2021-06-02] MEDS: Hydrocortisone Sodium Succ 100 MG/2 ML VIAL IVP SCH ×2 (14:58→21:17)
[2021-06-02] MEDS: Dexmedetomidine HCl 400 MCG/100 ML MLS IVC SCH ×2 (14:58→23:42)
[2021-06-02] MEDS: Famotidine 20 MG/2 ML VIAL IVP SCH (17:49)
[2021-06-02 23:31] LABS: VBG Ionized Calcium 1.16 mmol/L (1.15-1.35)
[2021-06-02 23:42] LABS: BUN/Creatinine Ratio 38 (6-26); Blood Urea Nitrogen 25 mg/dL (8-23); Calcium 8.1 mg/dL (8.6-10.3); Carbon Dioxide 31 mEq/L (23-29); Chloride 104 mEq/L (98-107); Glucose 122 mg/dL (70-105); Magnesium 2.1 mg/dL (1.6-2.6); Osmolality,Calculated 298 (280-300); Phosphorous 4.4 mg/dL (2.7-4.5); Potassium 4.6 mEq/L (3.5-5.1); Sodium 141 mEq/L (136-145); eGFR For African Americans > 60 (> 60); eGFR For Non-African Americans > 60 (> 60)
[2021-06-03] MEDS: Insulin LISPRO 300 UNITS/3 ML VIAL SUBQ SCH ×5 (00:03→23:47)
[2021-06-03 02:09] LABS: ABG Base Excess 3 mEq/L (-2 to 3); ABG HCO3 31 mEq/L (21-27); ABG Oxygen Saturation 99 % (95-98); ABG PCO2 71 mmHg (35-45); ABG PH 7.26 pH Units (7.32-7.45); ABG PO2 169 mmHg (85-104); ABG TCO2 34 mEq/L (20-26); Blood Gas Modality 15LPM
[2021-06-03] MEDS: Levalbuterol Neb 1.25 MG/3 ML IH SCH ×4 (03:34→22:10)
[2021-06-03 04:04] LABS: VBG Ionized Calcium 1.12 mmol/L (1.15-1.35)
[2021-06-03 04:49] LABS: Anisocytosis 2+ (Not Present); Hypochromasia Present (Not Present)
[2021-06-03] MEDS: Hydrocortisone Sodium Succ 100 MG/2 ML VIAL IVP SCH ×3 (05:32→21:11)
[2021-06-03] MEDS: Famotidine 20 MG/2 ML VIAL IVP SCH ×2 (05:33→18:01)
[2021-06-03] MEDS: Piperacillin/Tazobactam 3.375 GM in 0.9 % Sodium Chloride Mini Bag 100 ML IVPB SCH ×3 (08:02→23:46)
[2021-06-03 08:06] LABS: Mean Corpuscular Volume 98.5 fL (83.0-100.0)
[2021-06-03 08:08] LABS: ABG Base Excess 5 mEq/L (-2 to 3); ABG HCO3 31 mEq/L (21-27); ABG Oxygen Saturation 93 % (95-98); ABG PCO2 55 mmHg (35-45); ABG PH 7.36 pH Units (7.32-7.45); ABG PO2 72 mmHg (85-104); ABG TCO2 33 mEq/L (20-26); Blood Gas Modality NIV; Blood Gas VT 435 cc
[2021-06-03 08:08] LABS: Hematocrit 26.1 % (35.3-44.9); Hemoglobin 7.9 g/dL (11.5-15.4); Immature Platelets 7.1 % (1.1-6.1); Mean Corpuscular HGB Conc 30.3 g/dL (31.6-35.5); Mean Corpuscular Hemoglobin 29.8 pg (28.0-33.3); Mean Platelet Volume 10.8 fL (9.4-12.4); Nucleated Red Blood Cells 0.2 /100 WBC (0); Platelet Count 117 K/mcL (140-400); Red Blood Count 2.65 M/mcL (3.82-4.97); Red Cell Distribution Width 15.7 % (11.5-14.5); White Blood Count 9.8 K/mcL (4.3-11.1)
[2021-06-03 08:29] LABS: BUN/Creatinine Ratio 35 (6-26); Blood Urea Nitrogen 31 mg/dL (8-23); Calcium 8.5 mg/dL (8.6-10.3); Carbon Dioxide 33 mEq/L (23-29); Chloride 102 mEq/L (98-107); Glucose 151 mg/dL (70-105); Magnesium 2.3 mg/dL (1.6-2.6); Osmolality,Calculated 301 (280-300); Phosphorous 5.2 mg/dL (2.7-4.5); Potassium 4.5 mEq/L (3.5-5.1); Sodium 141 mEq/L (136-145); eGFR For African Americans > 60 (> 60); eGFR For Non-African Americans > 60 (> 60)
[2021-06-03] MEDS: Norepinephrine 4 MG/254 ML IV.SOLN IVC SCH ×2 (08:42→23:56)
[2021-06-03] MEDS ORDERED: *HR* LORazepam 2 MG/ML VIAL IVP ONE (08:48)
[2021-06-03 08:54] LABS: Lymphocytes # 0.3 K/mcL (0.6-4.6); Monocytes # 0.1 K/mcL (0.0-1.3); Neutrophils # 9.1 K/mcL (1.6-8.9)
[2021-06-03 08:55] LABS: Anisocytosis 1+ (Not Present); Platelet Estimate Slight Decrease (Normal)
[2021-06-03] MEDS: Dexmedetomidine HCl 400 MCG/100 ML MLS IVC SCH ×2 (11:42→19:17)
[2021-06-04] MEDS: Levalbuterol Neb 1.25 MG/3 ML IH SCH ×4 (03:29→19:59)
[2021-06-04 03:39] LABS: Hematocrit 25.1 % (35.3-44.9); Hemoglobin 7.6 g/dL (11.5-15.4); Lymphocytes # 0.2 K/mcL (0.6-4.6); Mean Corpuscular HGB Conc 30.3 g/dL (31.6-35.5); Mean Corpuscular Hemoglobin 29.9 pg (28.0-33.3); Mean Corpuscular Volume 98.8 fL (83.0-100.0); Mean Platelet Volume 11.4 fL (9.4-12.4); Platelet Count 113 K/mcL (140-400); Red Blood Count 2.54 M/mcL (3.82-4.97); Red Cell Distribution Width 15.6 % (11.5-14.5); White Blood Count 9.6 K/mcL (4.3-11.1)
[2021-06-04 03:48] LABS: VBG Ionized Calcium 1.22 mmol/L (1.15-1.35)
[2021-06-04 04:01] LABS: BUN/Creatinine Ratio 38 (6-26); Blood Urea Nitrogen 40 mg/dL (8-23); Calcium 8.7 mg/dL (8.6-10.3); Carbon Dioxide 30 mEq/L (23-29); Chloride 102 mEq/L (98-107); Glucose 181 mg/dL (70-105); Magnesium 2.3 mg/dL (1.6-2.6); Osmolality,Calculated 300 (280-300); Phosphorous 5.1 mg/dL (2.7-4.5); Potassium 4.1 mEq/L (3.5-5.1); Sodium 138 mEq/L (136-145); eGFR For African Americans > 60 (> 60); eGFR For Non-African Americans 53 (> 60)
[2021-06-04 04:12] LABS: Anisocytosis 1+ (Not Present); Monocytes # 0.4 K/mcL (0.0-1.3); Platelet Estimate Slight Decrease (Normal)
[2021-06-04] MEDS: Hydrocortisone Sodium Succ 100 MG/2 ML VIAL IVP SCH ×3 (04:51→22:59)
[2021-06-04] MEDS: Famotidine 20 MG/2 ML VIAL IVP SCH ×2 (04:51→17:52)
[2021-06-04] MEDS: Insulin LISPRO 300 UNITS/3 ML VIAL SUBQ SCH ×4 (04:52→23:52)
[2021-06-04] MEDS ORDERED: *HR* LORazepam 2 MG/ML VIAL IVP ONE (06:13)
[2021-06-04] MEDS: Dexmedetomidine HCl 400 MCG/100 ML MLS IVC SCH ×3 (07:27→17:52)
[2021-06-04] MEDS: Piperacillin/Tazobactam 3.375 GM in 0.9 % Sodium Chloride Mini Bag 100 ML IVPB SCH ×3 (08:23→23:00)
[2021-06-04] MEDS ORDERED: levoFLOXacin 750 MG/150 ML 750 MG/150 ML BAG IVPB SCH (09:00)
[2021-06-04] MEDS ORDERED: *HR* LORazepam 2 MG/ML VIAL IVP PRN ×2 (20:25→20:56)
[2021-06-05] MEDS: Norepinephrine 4 MG/254 ML IV.SOLN IVC SCH ×2 (00:11→23:12)
[2021-06-05] MEDS: Dexmedetomidine HCl 400 MCG/100 ML MLS IVC SCH ×2 (00:51→21:23)
[2021-06-05 03:40] LABS: Mean Platelet Volume 11.3 fL (9.4-12.4)
[2021-06-05 03:42] LABS: Hematocrit 24.6 % (35.3-44.9); Hemoglobin 7.5 g/dL (11.5-15.4); Immature Platelets 8.2 % (1.1-6.1); Mean Corpuscular HGB Conc 30.5 g/dL (31.6-35.5); Mean Corpuscular Volume 98.4 fL (83.0-100.0); Monocytes # 0.2 K/mcL (0.0-1.3); Red Cell Distribution Width 15.4 % (11.5-14.5); White Blood Count 7.5 K/mcL (4.3-11.1)
[2021-06-05 03:48] LABS: VBG Ionized Calcium 1.29 mmol/L (1.15-1.35)
[2021-06-05 04:09] LABS: BUN/Creatinine Ratio 43 (6-26); Blood Urea Nitrogen 42 mg/dL (8-23); Calcium 8.9 mg/dL (8.6-10.3); Carbon Dioxide 30 mEq/L (23-29); Chloride 101 mEq/L (98-107); Glucose 181 mg/dL (70-105); Osmolality,Calculated 299 (280-300); Phosphorous 4.9 mg/dL (2.7-4.5); Potassium 4.5 mEq/L (3.5-5.1); Sodium 137 mEq/L (136-145); eGFR For African Americans > 60 (> 60); eGFR For Non-African Americans 58 (> 60)
[2021-06-05] MEDS: Levalbuterol Neb 1.25 MG/3 ML IH SCH ×4 (04:16→19:45)
[2021-06-05 04:53] LABS: Platelet Count 98 K/mcL (140-400)
[2021-06-05 04:56] LABS: Lymphocytes # 0.5 K/mcL (0.6-4.6); Neutrophils # 6.9 K/mcL (1.6-8.9); Platelet Estimate Decreased (Normal)
[2021-06-05 04:57] LABS: Anisocytosis 1+ (Not Present); Hypochromasia Present (Not Present)
[2021-06-05] MEDS: Famotidine 20 MG/2 ML VIAL IVP SCH ×2 (05:03→18:01)
[2021-06-05] MEDS: *HR* LORazepam 2 MG/ML VIAL IVP PRN ×4 (05:03→20:50)
[2021-06-05] MEDS: Hydrocortisone Sodium Succ 100 MG/2 ML VIAL IVP SCH ×2 (05:03→18:01)
[2021-06-05] MEDS: Insulin LISPRO 300 UNITS/3 ML VIAL SUBQ SCH ×4 (06:06→23:15)
[2021-06-05] MEDS: Piperacillin/Tazobactam 3.375 GM in 0.9 % Sodium Chloride Mini Bag 100 ML IVPB SCH ×3 (09:09→23:21)
[2021-06-05] MEDS: DilTIAZem CD (24hr) 120 MG CAP.ER.24H PO SCH (12:11)
[2021-06-05] MEDS ORDERED: Vancomycin 500 MG in 0.9 % Sodium Chloride Mini Bag 100 ML IVPB ONE (18:00)
[2021-06-05] MEDS ORDERED: Ipratropium/Albuterol Neb 3 ML IH PRN (18:18)
[2021-06-05] MEDS ORDERED: *HR* Metoprolol 5 MG/5 ML VIAL IVP ONE (18:21)
[2021-06-05] MEDS: Metoprolol 100 MG TABLET PO SCH (19:42)
[2021-06-06 03:04] LABS: VBG Ionized Calcium 1.29 mmol/L (1.15-1.35)
[2021-06-06 03:08] LABS: Basophils % 0.1 %; Hemoglobin 7.6 g/dL (11.5-15.4); Monocytes % 3.8 %; Red Cell Distribution Width 15.7 % (11.5-14.5)
[2021-06-06 03:10] LABS: Hematocrit 25.7 % (35.3-44.9); Immature Granulocytes % 0.4 % (0-4); Immature Platelets 8.4 % (1.1-6.1); Lymphocytes # 0.3 K/mcL (0.6-4.6); Lymphocytes % 4.8 %; Mean Corpuscular HGB Conc 29.6 g/dL (31.6-35.5); Mean Corpuscular Hemoglobin 29.6 pg (28.0-33.3); Mean Platelet Volume 11.4 fL (9.4-12.4); Monocytes # 0.3 K/mcL (0.0-1.3); Neutrophils # 6.2 K/mcL (1.6-8.9); Red Blood Count 2.57 M/mcL (3.82-4.97); Segmented Neutrophils % 90.9 %; White Blood Count 6.8 K/mcL (4.3-11.1)
[2021-06-06 03:18] LABS: Platelet Count 96 K/mcL (140-400)
[2021-06-06] MEDS: Levalbuterol Neb 1.25 MG/3 ML IH SCH ×4 (03:40→20:24)
[2021-06-06 03:42] LABS: Alanine Aminotransferase 19 Units/L (7-52); Albumin 2.7 g/dL (3.5-5.7); Albumin/Globulin Ratio 1.2 (1.1-2.2); Alkaline Phosphatase 247 Units/L (34-104); Aspartate Amino Transferase 18 Units/L (13-39); BUN/Creatinine Ratio 49 (6-26); Bilirubin,Total 0.8 mg/dL (0.3-1.0); Blood Urea Nitrogen 46 mg/dL (8-23); Calcium 8.8 mg/dL (8.6-10.3); Carbon Dioxide 33 mEq/L (23-29); Chloride 104 mEq/L (98-107); Globulin 2.2 g/dL (2.4-3.5); Glucose 107 mg/dL (70-105); Magnesium 1.8 mg/dL (1.6-2.6); Osmolality,Calculated 302 (280-300); Phosphorous 4.2 mg/dL (2.7-4.5); Potassium 4.7 mEq/L (3.5-5.1); Sodium 140 mEq/L (136-145); Total Protein 4.9 g/dL (6.4-8.9); eGFR For African Americans > 60 (> 60); eGFR For Non-African Americans > 60 (> 60)
[2021-06-06] MEDS: Insulin LISPRO 300 UNITS/3 ML VIAL SUBQ SCH ×4 (05:16→23:14)
[2021-06-06] MEDS: Hydrocortisone Sodium Succ 100 MG/2 ML VIAL IVP SCH ×2 (05:16→18:02)
[2021-06-06] MEDS: Famotidine 20 MG/2 ML VIAL IVP SCH ×2 (05:16→18:02)
[2021-06-06] MEDS: Dexmedetomidine HCl 400 MCG/100 ML MLS IVC SCH (06:02)
[2021-06-06] MEDS ORDERED: Ertapenem 1,000 MG in 0.9 % Sodium Chloride Mini Bag 100 ML IVPB SCH (09:00)
[2021-06-06] MEDS ORDERED: Furosemide 20 MG TABLET PO SCH (09:00)
[2021-06-06] MEDS ORDERED: levoFLOXacin 750 MG/150 ML 750 MG/150 ML BAG IVPB SCH (09:00)
[2021-06-06] MEDS ORDERED: Thiamine (B-1) 100 MG TABLET PO SCH (09:00)
[2021-06-06] MEDS: DilTIAZem CD (24hr) 120 MG CAP.ER.24H PO SCH (09:44)
[2021-06-06] MEDS: Metoprolol 100 MG TABLET PO SCH ×2 (09:44→20:12)
[2021-06-06] MEDS: *HR* LORazepam 2 MG/ML VIAL IVP PRN (18:38)
[2021-06-06] MEDS: Norepinephrine 4 MG/254 ML IV.SOLN IVC SCH (23:13)
[2021-06-07] MEDS: *HR* LORazepam 2 MG/ML VIAL IVP PRN ×3 (00:36→07:27)
[2021-06-07] MEDS ORDERED: Vancomycin 500 MG in 0.9 % Sodium Chloride Mini Bag 100 ML IVPB ONE (02:00)
[2021-06-07] MEDS ORDERED: Vancomycin 500 MG in 0.9 % Sodium Chloride Mini Bag 100 ML IVPB SCH (02:00)
[2021-06-07 04:38] LABS: Hematocrit 26.4 % (35.3-44.9); Hemoglobin 7.6 g/dL (11.5-15.4); Immature Granulocytes % 0.5 % (0-4); Immature Platelets 8.8 % (1.1-6.1); Lymphocytes # 0.4 K/mcL (0.6-4.6); Lymphocytes % 7.6 %; Mean Corpuscular HGB Conc 28.8 g/dL (31.6-35.5); Mean Corpuscular Hemoglobin 29.5 pg (28.0-33.3); Mean Corpuscular Volume 102.3 fL (83.0-100.0); Mean Platelet Volume 11.7 fL (9.4-12.4); Monocytes # 0.3 K/mcL (0.0-1.3); Monocytes % 5.6 %; Neutrophils # 4.8 K/mcL (1.6-8.9); Red Blood Count 2.58 M/mcL (3.82-4.97); Segmented Neutrophils % 86.3 %; White Blood Count 5.5 K/mcL (4.3-11.1)
[2021-06-07 04:43] LABS: Platelet Count 83 K/mcL (140-400)
[2021-06-07 04:45] LABS: BUN/Creatinine Ratio 59 (6-26); Blood Urea Nitrogen 54 mg/dL (8-23); Carbon Dioxide 34 mEq/L (23-29); Chloride 106 mEq/L (98-107); Glucose 154 mg/dL (70-105); Osmolality,Calculated 316 (280-300); Potassium 4.6 mEq/L (3.5-5.1); Sodium 144 mEq/L (136-145); eGFR For African Americans > 60 (> 60); eGFR For Non-African Americans > 60 (> 60)
[2021-06-07] MEDS: Levalbuterol Neb 1.25 MG/3 ML IH SCH (04:49)
[2021-06-07 05:27] LABS: Hypochromasia Present (Not Present)
[2021-06-07 05:28] LABS: Platelet Estimate Decreased (Normal)
[2021-06-07] MEDS: Insulin LISPRO 300 UNITS/3 ML VIAL SUBQ SCH (05:28)
[2021-06-07] MEDS: Famotidine 20 MG/2 ML VIAL IVP SCH (05:31)
[2021-06-07] MEDS: Hydrocortisone Sodium Succ 100 MG/2 ML VIAL IVP SCH (05:33)
[2021-06-07 07:33] VITALS: BP 86/50; PULSE 71; O2SAT 90
[2021-06-07] MEDS ORDERED: Morphine Sulfate 2 MG/ML SYRINGE IVP PRN (07:52)
[2021-06-07] MEDS ORDERED: *HR* LORazepam 2 MG/ML VIAL IVP PRN (07:52)
[2021-06-07 07:55] VITALS: TEMP 97.9
[2021-06-07] MEDS ORDERED: *HR* EPINEPHrine 1 MG/10 ML SYRINGE IVP ONE (07:56)
== END 2021-06-07 07:57 | disposition expired | DRG 871 ==
LOC: EMEROOARM 21:17 → 2NNU 21:17 → ICNU 06-02 06:34
PROVIDERS: ADMIT Family Medicine; ATTEND Family Medicine